=== PATIENT | female | born 1960 | race Caucasian/White ===

== ENCOUNTER 2022-07-12 12:32 | Outpatient (REF) | payer OTHER, SELFPAY ==
[2022-07-12 15:03] LABS: Influenza A PCR NEGATIVE (Negative); Influenza B PCR NEGATIVE (Negative); Resp Syncy Virus RNA Qual PCR NEGATIVE (Negative); SARS COV2 PCR INHOUSE NEGATIVE (Negative)
== END 2022-07-12 12:33 | disposition home or self-care (01) ==
LOC: HO.LNP 12:32
PROVIDERS: Visit Provider Internal Medicine
DX: Z20.822 Contact with and (suspected) exposure to COVID-19 (principal); R09.89 Other specified symptoms and signs involving the circulatory and respiratory systems; N30.00 Acute cystitis without hematuria
CPT/HCPCS: 0241U; 87086

== ENCOUNTER 2022-10-30 08:47 | Outpatient (AMB) | payer OTHER, SELFPAY ==
--- NOTE | 2022-10-30 08:55 | A.OFFPC_ITS ---
Vital Signs 10/30/22 08:56 Height 5 ft 3 in Weight 142 lb 6 oz BMI 25.2 BP 144/86 H Blood Pressure Location Lt brachial Position Sitting Pulse 60 Pulse Source Pulse Oximeter Pulse Oximetry (%) 95 Oxygen Delivery Method Room Air Intake Visit Reasons: Annual PE Allergies penicillins Adverse Reaction (Mild, Uncoded 07/12/22 09:49) Rash Medication List - Last Reconciled 10/30/22 by Дмитрий Hong MD No Known Home Meds Tobacco use date assessed: 10/30/22 Fall risk assessment: No Falls in past year Last assessed Fall Risk: 10/30/22 Dental Screening Dental Screen Date: 10/30/22 Did you have a dental visit in the last 12 months?: Yes Did you have a dental problem in the last 6 months where you did not have access to dental care?: No Was dental information given to patient?: No HPI Annual PE HPI Details Patient is 62-year-old female came in today for initial establish care visit on physical examination Patient is due for mammogram last mammogram was in 2019 at [place] Due for colonoscopy last colonoscopy was in 2011 that showed hemorrhoid and diverticulosis Due for Pap smear Due for labs as well to be done fasting Pressure is 144/86 I see that it was high last time as well in June when she was seen in walk-in clinic at 140/90 Patient will buy a blood pressure monitor and start monitoring it at home and keep a log She will be seen again in 12 weeks patient will bring her blood pressure log as well as monitor along. On examination she has developed tenia corporis rash under the breast I have sent Lotrisone cream that she can use once at night Also instructed patient to wear cotton proper without wires. [facility] Social History Housing: House Patient Tobacco Use Status: Never used Tobacco e-Cigarette/Vaping Use: Never Used service: No Current occupational status: employed Cognitive needs: No Hearing needs: No Vision needs: No Questionnaire PHQ-9 Over the last 2 weeks, how often have you been bothered by any of the following problems? 1. Little interest or pleasure in doing things: several days 2. Feeling down, depressed, or hopeless: not at all 3. Trouble falling or staying asleep, or sleeping too much: not at all 4. Feeling tired or having little energy: several days 5. Poor appetite or overeating: several days 6. Feeling bad about yourself - or that you are a failure or have let yourself or your family down: not at all 7. Trouble concentrating on things, such as reading the newspaper or watching television: several days 8. Moving or speaking so slowly that other people could have noticed. Or the opposite - being so fidgety or restless that you have been moving around a lot more than usual: not at all 9. Thoughts that you would be better off or of hurting yourself in some way: not at all Total score: 4 Depression Screening Interpretation: Negative 14291 - PHQ-9 Billing: Yes Source: Developed by Drs. Tristen Bates, Niama Castillo, Jose Guadalupe Law and colleagues, with an educational fide from [employer]. Thrive Questionnaire Date Thrive assessed: 10/30/22 I am a: Patient What is your living situation today?: I have a steady place to live Within the past 12 months, did the food you bought not last and you didn't have the money to get more?: Never true Within the past 12 months, did you worry whether your food would run out before you got money to buy more?: Never true Do you have trouble paying for medicines?: No Do you have trouble getting transportation to medical appointments?: No Do you have trouble paying your heating and electricity bill?: No Do you have trouble taking care of your child, family member or friend?: No Do you have trouble with day-to-day activities such as bathing, preparing meals, shopping, managing finances, etc.?: No Are you currently unemployed and looking for a job?: No Are you interested in more education?: Yes AUDIT C Alcohol Use Questionnaire (AUDIT-C) 1. How often do you have a drink containing alcohol?: Never 3. How often do you have six or more drinks on one occasion?: Never Total Score: 0 Score Reviewed/Action Taken: Yes BLAIR-7 AMB Questionnaire BLAIR-7 Date BLAIR - 7 assessed: 10/30/22 Feeling nervous, anxious, or on edge: 1 = Several days Not being able to stop or control worryin = Several days Worrying too much about different things: 1 = Several days Trouble relaxin = Several days Being so restless that it is hard to sit still: 1 = Several days Becoming easily annoyed or irritable: 1 = Several days Feeling afraid as if something awful might happen: 1 = Several days Total BLAIR-7 score (0-4 normal; 5-9 mild; 10-14 moderate; 15-21 severe): 7 Source: Developed by Drs. Tristen Bates, Naima Castillo, Jose Guadalupe Law and colleagues, with an educational fide from [employer]. BLAIR-7 Assessment Billing BLAIR-7 Assessment Tool: BLAIR-7 Assessment 85609 Review of Systems Const Denies chills, Denies fever(s) and Denies headache(s) Eyes Denies blurry vision ENT Denies headache(s), Denies nasal discharge, Denies nasal obstruction, Denies odynophagia and Denies sinus pain Card Denies chest pain at rest and Denies chest pain with activity Resp Denies cough and Denies hemoptysis GI Denies diarrhea, Denies odynophagia, Denies vomiting and Denies hematemesis Reports as per HPI Musc Denies abnormal gait Skin/Breast Reports as per HPI Neuro Denies Neuro-related abnormal movements, Denies Abnormal speech present, Denies abnormal gait, Denies headache(s) and Denies Sensory deficit (Neuro) Psych Denies mood swings and Denies paranoia Endo Reports as per HPI Zachery/Lymph Reports as per HPI Aller/Immun Reports as per HPI Physical exam (Primary Care) Vital Signs: Last Vital Signs Pulse 60 10/30/22 08:56 BP 144/86 H 10/30/22 08:56 Pulse Ox 95 10/30/22 08:56 Oxygen Delivery Method Room Air 10/30/22 08:56 BMI result Body Mass Index 25.2 Tobacco/Smoking Status: Tobacco use Status Tobacco use date assessed 10/30/22 10/30/22 08:58 Patient Tobacco Use Status Never used Tobacco 10/30/22 08:58 e-Cigarette/Vaping Use Never Used 10/30/22 08:58 PHQ-9: PHQ-9 Score PHQ-9: Total score 4 10/30/22 09:38 Depression Screening Interpretation: Negative Thrive Assessment: Date of Thrive Assessment Date Thrive assessed 10/30/22 10/30/22 09:38 Const General: cooperative, comfortable and no acute distress Orientation/consciousness: patient oriented x3 HENMT Head: Yes normocephalic and Yes atraumatic Eyes General: appearance normal, both eyes and all related structures Pupils: Equal, round and reactive pupils present EOM: EOMs intact bilaterally Neck Neck: Yes supple and No lymphadenopathy Thyroid: Thyroid normal Lymphatic: no lymphadenopathy noted Chest Other: Rash under both breast Breast/axilla palpation: normal palpation of the breasts Resp Effort & Inspection: normal respiratory effort and able to speak in complete sentences Auscultation: clear to auscultation bilaterally Cardio Heart sounds: S1 normal heart sound present and S2 normal heart sound present GI Palpation (GI): Soft to palpation and nontender Auscultation: normal bowel sounds General: Yes no CVA tenderness Back/Spine/Pelvis Back: no CVA tenderness Skin General skin exam: elasticity normal and turgor normal Neuro General: patient oriented x3 and gait normal Cranial nerves: Yes Equal, round and reactive pupils present Speech: No Abnormal speech present Sensory Exam: No Sensory deficit (Neuro) Coordination: tandem gait normal and Romberg test negative Extrem General: Yes normal exam except as noted and No edema Assessment and Plan Assessment & Plan (1) Encounter for general adult medical examination with abnormal findings: Code(s): Z00.01 - Encounter for general adult medical examination with abnormal findings (2) Elevated blood pressure reading: Code(s): R03.0 - Elevated blood-pressure reading, without diagnosis of hypertension (3) Tinea corporis: Code(s): B35.4 - Tinea corporis (4) Colon cancer screening: Code(s): Z12.11 - Encounter for screening for malignant neoplasm of colon Plan Patient is 62-year-old female came in today for initial establish care visit on physical examination Patient is due for mammogram last mammogram was in 2019 at [facility] Due for colonoscopy last colonoscopy was in 2011 that showed hemorrhoid and diverticulosis Due for Pap smear Due for labs as well to be done fasting Pressure is 144/86 I see that it was high last time as well in June when she was seen in walk-in clinic at 140/90 Patient will buy a blood pressure monitor and start monitoring it at home and keep a log She will be seen again in 12 weeks patient will bring her blood pressure log as well as monitor along. On examination she has developed tenia corporis rash under the breast I have sent Lotrisone cream that she can use once at night Also instructed patient to wear cotton proper without wires. Orders: Orders Comprehensive [place]. Panel Fast Today B35.4 - Tinea corporis, R03.0 - Elevated blood-pressure reading, without diagnosis of hypertension, Z00.01 - Encounter for general adult medical examination with abnormal findings Lipid Panel Today B35.4 - Tinea corporis, R03.0 - Elevated blood-pressure reading, without diagnosis of hypertension, Z00.01 - Encounter for general adult medical examination with abnormal findings Complete Blood Count Auto Diff Today B35.4 - Tinea corporis, R03.0 - Elevated blood-pressure reading, without diagnosis of hypertension, Z00.01 - Encounter for general adult medical examination with abnormal findings TSH reflex Free T4 Today R03.0 - Elevated blood-pressure reading, without diagnosis of hypertension MM tomosynthesis screening BI Today Z12.31 - Encounter for screening mammogram for malignant neoplasm of breast Referrals Gastroenterology Referral Z12.11 - Encounter for screening for malignant neoplasm of colon [facility] Referral Z01.419 - Encounter for gynecological examination (general) (routine) without abnormal findings Medications: New clotrimazole-betamethasone 1-0.05 % 1 appl topical ONCE 45 grams 0RF 30 days clotrimazole-betamethasone 1-0.05 % 1 appl topical ONCE 45 grams 0RF 30 days Coding Level of Care Code New Pt Prev Care 40-64y(54443) Diagnoses Encounter for general adult medical examination with abnormal findings Z00.01 Elevated blood pressure reading R03.0 Tinea corporis B35.4 Colon cancer screening Z12.11 Additional Codes BLAIR-7 Assessment Billing - BLAIR-7 Assessment Tool: BLAIR-7 Assessment 04522 ([id number])
[2022-10-30 08:56] VITALS: BP 144/86; PULSE 60; O2SAT 95; BMI 25.2
== END 2022-10-30 09:25 | disposition home or self-care (01) ==
PROVIDERS: Visit Provider Internal Medicine
DX: Z00.01 Encounter for general adult medical examination with abnormal findings (principal); R03.0 Elevated blood-pressure reading, without diagnosis of hypertension; B35.4 Tinea corporis; Z12.11 Encounter for screening for malignant neoplasm of colon
CPT/HCPCS: 99386; 99396

== ENCOUNTER 2022-11-24 08:21 | Outpatient (REF) | payer OTHER, SELFPAY | END 2022-11-24 08:22 | disposition home or self-care (01) | LOC: HO.MAMMO 08:21 | PROVIDERS: PCP Internal Medicine; Visit Provider Internal Medicine | DX: Z12.31 Encounter for screening mammogram for malignant neoplasm of breast (principal) | CPT/HCPCS: 77063; 77067 ==

== ENCOUNTER → 2022-11-24 08:45 | Outpatient (BNV) | payer OTHER, SELFPAY | PROVIDERS: PCP Internal Medicine; Visit Provider Radiology Diagnostic Radiology | DX: Z12.31 Encounter for screening mammogram for malignant neoplasm of breast (principal) | CPT/HCPCS: 77063; 77067 ==

== ENCOUNTER 2022-12-07 09:15 | Outpatient (AMB) | payer OTHER, SELFPAY ==
--- NOTE | 2022-12-07 09:24 | MHC.OFFVIS ---
Intake Vital Signs 12/07/22 09:26 Height 5 ft 3 in Weight 138 lb 14.259 oz BMI 24.6 BP 194/94 H Blood Pressure Location Lt brachial Position Sitting Pulse 54 Intake Visit Reasons: Colonoscopy Screening Intake Note: Erika presents in the office as a new patient colonoscopy screening. CC: She states that she does suffer from constipation. She gets constipated quite a bit. Sociology Instructor Required: No Allergies penicillins Adverse Reaction (Mild, Uncoded 12/07/22 09:28) Rash HPI Colonoscopy Screening HPI Details 62 year old? female here today for pre colonoscopy screening.? Patient was sent to us by her PCP.? Last colonoscopy over 10 years ago at [place]. Patient was found to have diverticulosis no polyps found.? Patient denies any gastrointestinal symptoms in the past or at present.? However patient does report constipation. Denies any personal or family history of gastrointestinal disease, colon polyps, or cancer.? Denies history of difficulty with sedation or anesthesia in the past.? Negative for history of sleep apnea.? Denies any history of cardiac, renal, pulmonary, or hepatic disease.?? No history of infectious? diseases like hepatitis A, B, C, HIV or tuberculosis.? Patient is not on any anticoagulation therapy. PFSH Surgical History H/O section Hx of colonoscopy Social History Housing: House Patient Tobacco Use Status: Never used Tobacco e-Cigarette/Vaping Use: Never Used service: No Current occupational status: employed Cognitive needs: No Hearing needs: No Vision needs: No Review of Systems Const Denies weight gain and Denies weight loss ENT Reports no additional complaints, Denies dysphagia and Denies odynophagia Card Reports no additional complaints Resp Reports no additional complaints GI Denies abdominal pain, Denies belching, Denies melena, Denies bloating, Reports constipation, Denies dysphagia, Denies excessive flatus, Denies dyspepsia, Denies heartburn, Denies diarrhea, Denies loose stools, Denies nausea, Denies odynophagia and Denies vomiting Reports no additional complaints Musc Reports no additional complaints Neuro Reports no additional complaints Psych Reports no additional complaints Endo Reports no additional complaints Physical Exam Vital Signs: Last Vital Signs Pulse 54 12/07/22 09:26 BP 194/94 H 12/07/22 09:26 BMI result Body Mass Index 24.6 Const General: healthy appearing, no acute distress and well developed Nutritional Appearance: well nourished Orientation/consciousness: patient oriented x3 HEENT Head: Yes normal to inspection, Yes normocephalic and Yes atraumatic Face and sinus: Yes normal facial exam Mouth: Normal oral and palatal mucosa present Throat: Yes posterior oropharynx normal, Yes tonsils normal and Yes uvula midline Eyes General: appearance normal, both eyes and all related structures Neck Neck: Yes normal visual inspection, Yes full ROM and Yes trachea midline Thyroid: Thyroid normal Resp Effort & Inspection: normal respiratory effort, able to speak in complete sentences, no tracheal deviation and symmetric chest movement Auscultation: clear to auscultation bilaterally Cardio Rate: regular rate Heart sounds: S1 normal heart sound present and S2 normal heart sound present GI Inspection: Yes normal to inspection and No distended Palpation (GI): Soft to palpation, not firm, nontender and No hepatosplenomegaly present Auscultation: normal bowel sounds General: Yes no CVA tenderness Back/Spine/Pelvis Back: no CVA tenderness Skin General skin exam: elasticity normal, turgor normal and dry skin Neuro General: patient oriented x3 Psych Appearance: grossly normal Mental Status: mental status grossly normal Speech and movement: Normal speech and movement present Assessment & Plan Assessment & Plan (1) Colon cancer screening: Code(s): Z12.11 - Encounter for screening for malignant neoplasm of colon Plan: Patient denies any GI, cardiac or respiratory symptoms.? However patient does reports to be constipated will send her script for MiraLax in the morning and docusate sodium at bedtime. Denies any issues with anesthesia in the past.? Denies any history of sleep apnea.? No history infectious diseases in the past or present.? Not on any anticoagulation therapy.? No family or personal history of colon cancer or polyps.? Patient denies melena, hematochezia, unintentional weight loss or ribbon like stools.? Discussed at length the pre-procedure,? prep, diet & medications as well as what to expect prior, during and after the procedure.?? Stressed the importance of good bowel prep. ?Recommended the use of Vaseline or Calmoseptine OTC & baby wipes with bowel movements to promote comfort.? ?Patient verbalizes understanding and agrees to plan of care.? She was given the opportunity to ask questions and all questions answered.? We will see her after the procedure.? Medications: New bisacodyl (Dulcolax (bisacodyl)) take 2 tabs at noon the day before your colonoscopy 10 mg (2 x 5 mg) PO ONCE 1 day 2 tabs 0RF Z12.11 - Encounter for screening for malignant neoplasm of colon polyethylene glycol 3350 (Miralax) As directed by gastroenterology department at [facility] 238 grams PO ONCE 238 grams 0RF Z12.11 - Encounter for screening for malignant neoplasm of colon polyethylene glycol 3350 (Miralax) 17 grams PO DAILY 510 grams 2RF docusate sodium 100 mg PO BEDTIME 90 caps 3RF K59.00 - Constipation, unspecified Coding Level of Care Code New Pt Level 3 (91445) Diagnoses Colon cancer screening Z12.11 Time Spent (min) 40 Comment 30 minutes spent with patient and additional 10 minutes spent reviewing her records
[2022-12-07 09:26] VITALS: BP 194/94; PULSE 54; BMI 24.6
== END 2022-12-07 10:07 | disposition home or self-care (01) ==
PROVIDERS: PCP Internal Medicine; Visit Provider Nurse Practitioner Family
DX: Z12.11 Encounter for screening for malignant neoplasm of colon (principal); Z01.818 Encounter for other preprocedural examination
CPT/HCPCS: S0285

== ENCOUNTER → 2022-12-07 09:15 | Outpatient (BNVA) | payer OTHER, SELFPAY | PROVIDERS: PCP Internal Medicine; Visit Provider Nurse Practitioner Family ==

== ENCOUNTER 2023-02-12 08:07 | Outpatient (REF) | payer OTHER, SELFPAY ==
[2023-02-12 11:17] LABS: MANUAL DIFF FLAG NO
[2023-02-12 11:25] LABS: Basophils Percent Auto 0.6 % (0-2); Eosinophils Absolute Auto 0.3 X10*3/uL (0.0-0.4); Eosinophils Percent Auto 3.7 % (0-4); Hematocrit 47.6 % (37.0-47.0); Hemoglobin 14.9 g/dl (12.0-16.0); Imm Gran Abs Auto 0.02 X10*3/uL (0.00-0.03); Imm Gran Pct Auto 0.3 % (0.0-0.4); Lymphocytes Absolute Auto 2.1 X10*3/uL (1.2-4.9); Lymphocytes Percent Auto 30.7 % (20-40); Mean Corpuscular HGB Conc 31.3 g/dl (31.0-35.0); Mean Corpuscular Hemoglobin 27.6 pg (27.0-33.0); Mean Corpuscular Volume 88.3 fL (80.0-98.0); Mean Platelet Volume 10.4 fL (9.4-12.3); Monocytes Absolute Auto 0.6 X10*3/uL (0.1-1.2); Monocytes Percent Auto 9.1 % (2-11); Neutrophils Absolute Auto 3.7 x10*3/uL (2.0-8.3); Neutrophils Percent Auto 55.6 % (45-73); Platelet Count 305 X10*3/uL (160-400); Red Blood Count 5.39 X10*6/uL (4.20-5.50); White Blood Count 6.7 X10*3/uL (4.8-10.8)
[2023-02-12 12:07] LABS: Alanine Aminotransferase 19 U/L (0-31); Albumin Level 4.2 g/dL (3.5-5.0); Alkaline Phosphatase 87 U/L (39-117); Anion Gap 11 (12-20); Aspartate Amino Transferase 20 U/L (5-31); Bilirubin Total 0.5 mg/dL (0.0-1.0); Blood Urea Nitrogen 12 mg/dL (9-16); Carbon Dioxide 27 mmol/L (22-29); Chloride 101 mmol/L (96-108); Cholesterol 205 mg/dL (<200); Estimated Glomerular Filt Rate > 60; Glucose Fasting 107 mg/dL (60-99); HDL Cholesterol 37 mg/dL (>40); LDL Cholesterol Calculated 144 mg/dL (<100); Potassium 4.3 mmol/L (3.3-5.1); Sodium 135 mmol/L (135-145); TSH reflex Free T4 2.48 uIU/mL (0.32-4.0); Total Protein 7.8 g/dL (6.5-8.0); Triglycerides 121 mg/dL (<150)
== END 2023-02-12 08:08 | disposition home or self-care (01) ==
LOC: HO.HMGCLDS 08:07
PROVIDERS: PCP Internal Medicine; Visit Provider Internal Medicine
DX: Z00.01 Encounter for general adult medical examination with abnormal findings (principal); R03.0 Elevated blood-pressure reading, without diagnosis of hypertension; B35.4 Tinea corporis
CPT/HCPCS: 36415; 80053; 80061; 84443; 85025

== ENCOUNTER 2023-02-15 08:51 | Outpatient (AMB) | payer OTHER, SELFPAY ==
[2023-02-15 08:56] VITALS: BP 134/80; PULSE 61; O2SAT 98; BMI 24.4
--- NOTE | 2023-02-15 08:56 | A.OFFPC_ITS ---
Vital Signs 02/15/23 08:56 Height 5 ft 3 in Weight 138 lb BMI 24.4 BP 134/80 Blood Pressure Location Rt brachial Position Sitting Pulse 61 Pulse Source Pulse Oximeter Pulse Oximetry (%) 98 Oxygen Delivery Method Room Air Intake Visit Reasons: 4 month f/u Allergies penicillins Adverse Reaction (Mild, Uncoded 12/07/22 09:28) Rash Tobacco use date assessed: 02/15/23 Fall risk assessment: No Falls in past year Last assessed Fall Risk: 02/15/23 Dental Screening Dental Screen Date: 02/15/23 Did you have a dental visit in the last 12 months?: Yes Did you have a dental problem in the last 6 months where you did not have access to dental care?: No Was dental information given to patient?: Patient has dentist HPI 4 month f/u HPI Details Patient is 62-year-old female came in today to have a follow-up appointment and to have her blood pressure checked Patient is checking her blood pressure at home and it is running above 150 Today I checked the blood pressure and it is 175/100. I am starting her on atenolol 25 mg Patient also have impaired fasting sugar of 107 and LDL of 144 For that she will modify her diet PFSH Surgical History H/O section Hx of colonoscopy Social History Housing: House Patient Tobacco Use Status: Never used Tobacco e-Cigarette/Vaping Use: Never Used service: No Current occupational status: employed Cognitive needs: No Hearing needs: No Vision needs: No Questionnaire PHQ-9 Over the last 2 weeks, how often have you been bothered by any of the following problems? 1. Little interest or pleasure in doing things: several days 2. Feeling down, depressed, or hopeless: several days 3. Trouble falling or staying asleep, or sleeping too much: several days 4. Feeling tired or having little energy: several days 5. Poor appetite or overeating: several days 6. Feeling bad about yourself - or that you are a failure or have let yourself or your family down: several days 7. Trouble concentrating on things, such as reading the newspaper or watching television: several days 8. Moving or speaking so slowly that other people could have noticed. Or the o pposite - being so fidgety or restless that you have been moving around a lot more than usual: several days 9. Thoughts that you would be better off or of hurting yourself in some way: not at all Total score: 8 Depression Screening Interpretation: Negative Depression Screening Done: Yes 92590 - PHQ-9 Billing: Yes Source: Developed by Drs. Tristen Bates, Naima Castillo, Jose Guadalupe Law and colleagues, with an educational fide from [employer]. Thrive Questionnaire Date Thrive assessed: 10/30/22 AUDIT C Alcohol Use Questionnaire (AUDIT-C) 1. How often do you have a drink containing alcohol?: Never 3. How often do you have six or more drinks on one occasion?: Never Total Score: 0 Score Reviewed/Action Taken: Yes BLAIR-7 AMB Questionnaire BLAIR-7 Date BLAIR - 7 assessed: 10/30/22 Source: Developed by Drs. Tristen Bates, Naima Castillo, Jose Guadalupe Law and colleagues, with an educational fide from [employer]. Review of Systems Const Denies chills and Denies fever(s) ENT Denies epistaxis and Denies nasal discharge Card Denies chest pain Resp Denies chest congestion, Denies cough and Denies hemoptysis GI Denies diarrhea and Denies nausea Skin/Breast Denies rash Neuro Reports no additional complaints Psych Reports no additional complaints Endo Reports no additional complaints Physical exam (Primary Care) Vital Signs: Last Vital Signs Pulse 61 02/15/23 08:56 BP 134/80 02/15/23 08:56 Pulse Ox 98 02/15/23 08:56 Oxygen Delivery Method Room Air 02/15/23 08:56 BMI result Body Mass Index 24.4 Tobacco/Smoking Status: Tobacco use Status Tobacco use date assessed 02/15/23 02/15/23 09:05 Patient Tobacco Use Status Never used Tobacco 02/15/23 08:57 e-Cigarette/Vaping Use Never Used 02/15/23 08:57 PHQ-9: PHQ-9 Score PHQ-9: Total score 8 02/15/23 09:23 Depression Screening Interpretation: Negative Thrive Assessment: Date of Thrive Assessment Date Thrive assessed 10/30/22 02/15/23 08:57 Const General: cooperative, comfortable and no acute distress Orientation/consciousness: patient oriented x3 HENMT Head: Yes normocephalic Eyes General: appearance normal, both eyes and all related structures Neck Neck: Yes supple Resp Effort & Inspection: normal respiratory effort, no cough and no stridor Cardio Rhythm: regular rhythm Heart sounds: S1 normal heart sound present and S2 normal heart sound present Skin General skin exam: turgor normal Neuro General: patient oriented x3, tone normal and moves all extremities Extrem Right lower extremity: no edema Left lower extremity: no edema Assessment and Plan Assessment & Plan (1) Hypertension, essential: Code(s): I10 - Essential (primary) hypertension (2) Prediabetes: Code(s): R73.03 - Prediabetes (3) Lipid disorder: Code(s): E78.9 - Disorder of lipoprotein metabolism, unspecified Plan Patient is 62-year-old female came in today to have a follow-up appointment and to have her blood pressure checked Patient is checking her blood pressure at home and it is running above 150 Today I checked the blood pressure and it is 175/100. I am starting her on atenolol 25 mg Patient also have impaired fasting sugar of 107 and LDL of 144 For that she will modify her diet Coding Level of Care Code Est Pt Level 3 (82611) Diagnoses Hypertension, essential I10 Prediabetes R73.03 Lipid disorder E78.9
== END 2023-02-15 09:25 | disposition home or self-care (01) ==
PROVIDERS: Visit Provider Internal Medicine
DX: I10 Essential (primary) hypertension (principal); R73.03 Prediabetes; E78.9 Disorder of lipoprotein metabolism, unspecified
CPT/HCPCS: 99213

== ENCOUNTER 2023-03-21 10:24 | Day surgery (SDC) | payer OTHER, SELFPAY ==
[2023-03-21 10:27] VITALS: BMI 23.8
[2023-03-21 10:35] VITALS: BP 164/88; PULSE 42; RESP 20; TEMP 36.3; O2SAT 98
--- NOTE | 2023-03-21 10:39 | HO.ANESPROP2 ---
[facility] Active Problems Active Problems: All Active Problems (Updated 03/21/23 @ 10:40 by Paulette Begum MD) Lipid disorder (Acute) Prediabetes (Acute) Hypertension, essential (Acute) Encounter for routine gynecological examination (Acute) Colon cancer screening (Acute) Tinea corporis (Acute) Elevated blood pressure reading (Acute) Encounter for general adult medical examination with abnormal findings (Acute) Acute cystitis (Acute) Past Medical History Medical History HTN (hypertension) Family History Family history of problems with anesthesia: No Surgical History Surgical History H/O section Hx of colonoscopy History of Problems with Anesthesia: No Social History Social History Housing: House Patient Tobacco Use Status: Never used Tobacco e-Cigarette/Vaping Use: Never Used Are you DNR?: No Advance Directives: No Advance Directives Information Provided: Yes service: No Current occupational status: employed Cognitive needs: No Hearing needs: No Vision needs: No Meds Allergies Allergy/AdvReac Type Severity Reaction Status Date / Time penicillins AdvReac Mild Rash Uncoded 12/07/22 09:28 Exam Height,Weight and Vital Signs: Height 5 ft 3 in Weight 60.895 kg Last Vital Signs Temp 97.3 F 03/21/23 10:35 Pulse 82 03/21/23 10:35 Resp 20 03/21/23 10:35 BP 164/88 H 03/21/23 10:35 Pulse Ox 98 03/21/23 10:35 O2 Del Method Room Air 03/21/23 10:35 Airway Mallampati Class: II TM Dist: >3cm Neck ROM: Full Loose/Missing/Broken Teeth: Yes (Missing top left back. Caps back-intact. Denies broken or loose teeth) Heart: RRR Lungs: CTAB Assessment and Plan Assessment Anesthesia Assessment: Anesthesia Plan Discussed and Chart Reviewed Final Anesthetic Review Family History of Problems with Anesthesia: No History of Problems with Anesthesia: No NPO: Yes ASA Class: II Final Preanesthetic Review: No Changes in Pt Med Stat, Meds/Allgs Chart Reviewed, Consent Obtained/Reviewed and Anes Risks/Benef Reviewed Patient Risk: Low Procedure Risk: Low Assessment/Block/Sedation in SS: Assess/Block/Sedation-SS Anesthetic Plan Anesthetic Plan: TIVA Disposition: Standard PACU
--- NOTE | 2023-03-21 10:56 | MHC.SHP ---
Pre-Procedural Eval Section A Date of Service: 03/21/23 Section B Chief Complaint: Encounter for screening for malignant neoplasm of Relevant Family History (Specify if Yes): No Relevant Social History: None Present Medications: see Short Stay Collaborative assessment Medical History: Significant History (htn) History of Previous Operations: Relevant previous surgery/procedure and date(s) (H/O section Hx of colonoscopy) Allergies: Allergies Allergy/AdvReac Type Severity Reaction Status Date / Time penicillins AdvReac Mild Rash Uncoded 12/07/22 09:28 Review of Systems Sugical H&P ROS: Negative: Constitution, Cardiovascular, Respiratory, Neurological, Psychiatric, Hem-Onc, Allergic/Immunologic, Gastrointestinal, Genitourinary, Musculoskeletal, Integumentary, Endocrine and Eyes/Ears/Nose/Throat Exam Surgical H&P Exam: Normal: HEENT, Normal: Heart, Normal: Lungs, Normal: Extremities, Normal: Abdomen, Normal: Skin and Normal: Neurological Plan Diagnosis/Plan: Unchanged I have reviewed the history and physical and performed a pertinent physical examination on my patient. No changes have occurred unless specified. Time Spent With Patient Time: Total time managing care of this patient today ____ minutes.
--- NOTE | 2023-03-21 11:46 | W.PM.OPN ---
Operative Note Operative Note Date of Service: 03/21/23 Narrative: Operative Information Procedure Description: Colonoscopy Indication: Screening Anesthesia: MAC COLONOSCOPY Instrument: Olympus variable stiffness pediatric scope 190L Colonoscopy Monitoring: Vital signs and clinical assessment, continuous EKG monitoring, Pulse oximetry, Carbon Dioxide monitoring and blood pressure monitoring were done throughout the procedure. Colon withdrawal time was 12 minutes. Procedure: The patient was placed in the left lateral decubitis position and pre-procedure medications were administered. After a digital rectal examination of the ano-rectum, the video colonoscope was inserted into the rectum and advanced through the colon to the cecum/TI. The colonoscope was slowly withdrawn in a retrograde panoramic fashion and the colon mucosa was carefully examined including a retroflexed view of the rectum. Findings and interventions are described below. Procedure Difficulty: moderate Findings: Terminal Ileum-normal Cecum: x1 flat polyp 4-5 mm removed with cold forceps Ascending Colon: 10 mm sessile polyp removed with cold snare Transverse Colon -normal Descending Colon:normal Sigmoid Colon: x 4 sessile polyps 10-12 mm removed with cold snare, severe diverticulosis in distal sigmoid with luminal narrowing and hypertrophy, bx taken from rectosigmoid area Rectum: Retroflexion with small internal hemorrhoids, grade I Anorectum - normal Colon preparation: [place] Bowel Preparation Scale Right colon; 2 Transverse colon: 2 Left colon; 3 (0 = Unprepared colon segment with mucosa not seen due to solid stool that cannot be cleared. 1 = Portion of mucosa of the colon segment seen, but other areas of the colon segment not well seen due to staining, residual stool and/or opaque liquid. 2 = Minor amount of residual staining, small fragments of stool and/or opaque liquid, but mucosa of colon segment seen well. 3 = Entire mucosa of colon segment seen well with no residual staining, small fragments of stool or opaque liquid) Impression and Post Procedure Diagnosis: polyps internal hemorrhoids diverticular disease Plan: High fiber diet leaflet Avoid straining at stool, epsom salts and sitz bath, anusol supps or cream Repeat Colonoscopy in 3-4 years due to polyps or earlier if clinically indicated can use bentyl or levsin prn for cramping Above findings were reviewed with the patient and relevant handouts were provided if indicated.
[2023-03-21 11:55] VITALS: BP 156/80; PULSE 70; RESP 18; TEMP 36.3; O2SAT 99
[2023-03-21 12:10] VITALS: BP 156/74; PULSE 44; RESP 16; TEMP 36.2; O2SAT 100
== END 2023-03-21 13:05 | disposition home or self-care (01) ==
PROVIDERS: PCP Internal Medicine; Visit Provider Internal Medicine Gastroenterology
PROC: 0DJD8ZZ Inspection of Lower Intestinal Tract, Via Natural or Artificial Opening Endoscopic (ICD-10-PCS; CPT 45378; principal; 2023-03-21 13:10)
DX: Z12.11 Encounter for screening for malignant neoplasm of colon (principal); D12.2 Benign neoplasm of ascending colon; D12.4 Benign neoplasm of descending colon; D12.5 Benign neoplasm of sigmoid colon; K63.5 Polyp of colon; K57.30 Diverticulosis of large intestine without perforation or abscess without bleeding; K64.0 First degree hemorrhoids; K59.00 Constipation, unspecified; I10 Essential (primary) hypertension; E75.6 Lipid storage disorder, unspecified; R73.03 Prediabetes; Z88.0 Allergy status to penicillin
CPT/HCPCS: 45385; 45380; 88305; J2704

== ENCOUNTER → 2023-03-21 10:24 | Outpatient (BNV) | payer OTHER, SELFPAY | PROVIDERS: PCP Internal Medicine; Visit Provider Internal Medicine Gastroenterology | DX: Z12.11 Encounter for screening for malignant neoplasm of colon (principal); D12.0 Benign neoplasm of cecum; D12.2 Benign neoplasm of ascending colon; D12.5 Benign neoplasm of sigmoid colon; K57.30 Diverticulosis of large intestine without perforation or abscess without bleeding; K64.0 First degree hemorrhoids | CPT/HCPCS: 45380; 45385 ==

== ENCOUNTER 2023-04-23 11:37 | Outpatient (AMB) | payer OTHER, SELFPAY ==
--- NOTE | 2023-04-23 11:42 | MHC.OFFVIS ---
Intake Vital Signs 04/23/23 11:43 Height 5 ft 3 in Weight 134 lb BMI 23.7 BP 156/75 H Blood Pressure Location Lt brachial Position Sitting Pulse 46 L Intake Visit Reasons: s/p colon Intake Note: Patient follow up for Colonoscopy results. Patient denies any GI issues. Head Librarian Required: No Accompanied by: Self / Same As Patient Allergies penicillins Adverse Reaction (Mild, Uncoded 12/07/22 09:28) Rash HPI s/p colon HPI Details LAST VISIT Colon cancer screening Patient denies any GI, cardiac or respiratory symptoms.? However patient does reports to be constipated will send her script for MiraLax in the morning and docusate sodium at bedtime. Denies any issues with anesthesia in the past.? Denies any history of sleep apnea.? No history infectious diseases in the past or present.? Not on any anticoagulation therapy.? No family or personal history of colon cancer or polyps.? Patient denies melena, hematochezia, unintentional weight loss or ribbon like stools.? Discussed at length the pre-procedure,? prep, diet & medications as well as what to expect prior, during and after the procedure.?? Stressed the importance of good bowel prep. ?Recommended the use of Vaseline or Calmoseptine OTC & baby wipes with bowel movements to promote comfort.? ?Patient verbalizes understanding and agrees to plan of care.? She was given the opportunity to ask questions and all questions answered.? We will see her after the procedure.? Plan Medications New bisacodyl (Dulcolax (bisacodyl)) take 2 tabs at noon the day before your colonoscopy 10 mg (2 x 5 mg) PO ONCE 1 day 2 tabs 0RF Z12.11 polyethylene glycol 3350 (Miralax) As directed by gastroenterology department at [facility] 238 grams PO ONCE 238 grams 0RF Z12.11 polyethylene glycol 3350 (Miralax) 17 grams PO DAILY 510 grams 2RF docusate sodium 100 mg PO BEDTIME 90 caps 3RF K59.00 COLONOSCOPY Findings: Terminal Ileum-normal Cecum: x1 flat polyp 4-5 mm removed with cold forceps Ascending Colon: 10 mm sessile polyp removed with cold snare Transverse Colon -normal Descending Colon:normal Sigmoid Colon: x 4 sessile polyps 10-12 mm removed with cold snare, severe diverticulosis in distal sigmoid with luminal narrowing and hypertrophy, bx taken from rectosigmoid area Rectum: Retroflexion with small internal hemorrhoids, grade I Anorectum - normal Colon preparation: [place] Bowel Preparation Scale Right colon; 2 Transverse colon: 2 Left colon; 3 (0 = Unprepared colon segment with mucosa not seen due to solid stool that cannot be cleared. 1 = Portion of mucosa of the colon segment seen, but other areas of the colon segment not well seen due to staining, residual stool and/or opaque liquid. 2 = Minor amount of residual staining, small fragments of stool and/or opaque liquid, but mucosa of colon segment seen well. 3 = Entire mucosa of colon segment seen well with no residual staining, small fragments of stool or opaque liquid) Impression and Post Procedure Diagnosis: polyps internal hemorrhoids diverticular disease Plan: High fiber diet leaflet Avoid straining at stool, epsom salts and sitz bath, anusol supps or cream Repeat Colonoscopy in 3-4 years due to polyps or earlier if clinically indicated can use bentyl or levsin prn for cramping PATHOLOGY RESULTS Diagnosis A. Cecum, polypectomy: Colonic mucosa with prominent lymphoid aggregate and surface hyperplastic changes. B. Colon, ascending, polypectomy: Tubular adenoma; negative for high-grade dysplasia or carcinoma. C. Colon, descending, polypectomy: Tubular adenoma; negative for high-grade dysplasia or carcinoma. D. Colon, sigmoid, polypectomies: - Tubular adenoma; negative for high-grade dysplasia or carcinoma. - Hyperplastic mucosal polyp. E. Colon, rectosigmoid, biopsy: Colonic mucosa within normal limits.probiotic TODAY'S VISIT Patient is here today for follow-up and to discuss colonoscopy results. Patient denies any ill effects from the prep, anesthesia or procedure itself. Patient reports that she has been feeling well. Several tubular adenoma found without high-grade dysplasia or carcinoma. Colonoscopy will need to be repeated in 3 years per recommendations. Patient was also found to have the office in sigmoid colon. Patient reports that she is changing her diet, eating more fiber. Patient states that she drinks plenty fluids. Patient denies any GI concerning symptoms at this time. [facility] Medical History (Updated 04/23/23 @ 12:06 by Dena Patel [facility]) Diverticulosis Tubular adenoma HTN (hypertension) Surgical History H/O section Hx of colonoscopy Social History Housing: House Patient Tobacco Use Status: Never used Tobacco e-Cigarette/Vaping Use: Never Used service: No Current occupational status: employed Cognitive needs: No Hearing needs: No Vision needs: No Review of Systems Const Denies weight gain and Denies weight loss ENT Reports no additional complaints, Denies dysphagia and Denies odynophagia Card Reports no additional complaints Resp Reports no additional complaints GI Denies abdominal pain, Denies belching, Denies melena, Denies bloating, Denies change in bowel habits, Denies dysphagia, Denies excessive flatus, Denies dyspepsia, Denies heartburn, Denies diarrhea, Denies loose stools, Denies nausea, Denies odynophagia and Denies vomiting Musc Reports no additional complaints Neuro Reports no additional complaints Psych Reports no additional complaints Endo Reports no additional complaints Physical Exam Vital Signs: Last Vital Signs Pulse 46 L 04/23/23 11:43 BP 156/75 H 04/23/23 11:43 BMI result Body Mass Index 23.7 Const General: healthy appearing, no acute distress and well developed Nutritional Appearance: well nourished Orientation/consciousness: patient oriented x3 Resp Effort & Inspection: normal respiratory effort, able to speak in complete sentences, no tracheal deviation and symmetric chest movement Auscultation: clear to auscultation bilaterally Cardio Rate: regular rate GI Inspection: Yes normal to inspection and No distended Palpation (GI): Soft to palpation, not firm, nontender and No hepatosplenomegaly present Auscultation: normal bowel sounds General: Yes no CVA tenderness Back/Spine/Pelvis Back: no CVA tenderness Skin General skin exam: elasticity normal, turgor normal and dry skin Neuro General: patient oriented x3 Psych Appearance: grossly normal Mental Status: mental status grossly normal Assessment & Plan Assessment & Plan (1) Tubular adenoma: Code(s): D36.9 - Benign neoplasm, unspecified site (2) Diverticulosis: Code(s): K57.90 - Diverticulosis of intestine, part unspecified, without perforation or abscess without bleeding (3) Status post colonoscopy: Code(s): Z98.890 - Other specified postprocedural states Plan As mentioned above in HPI patient denies any GI concerning symptoms. Denies any issues with anesthesia, procedure or prep. Diverticulosis found. Discussed with patient high-fiber diet. List of food high in fiber given to patient. Colonoscopy will be repeated in 3 years as per recommendation. Multiple tubular adenoma found without high-grade dysplasia or carcinoma. Patient will follow-up in our office on as-needed basis. She is agreeable to this plan and verbalizes understanding of instructions. She was given the opportunity to ask questions and all questions answered. Thank you for allowing me to participate in her care Coding Level of Care Code Est Pt Level 3 (35644) Diagnoses Tubular adenoma D36.9 Diverticulosis K57.90 Status post colonoscopy Z98.890 Time Spent (min) 30 Comment 20 minutes spent with patient and additional 10 minutes spent reviewing her records
[2023-04-23 11:43] VITALS: BP 156/75; PULSE 46; BMI 23.7
== END 2023-04-23 12:09 | disposition home or self-care (01) ==
PROVIDERS: PCP Internal Medicine; Visit Provider Nurse Practitioner Family
DX: D36.9 Benign neoplasm, unspecified site (principal); K57.90 Diverticulosis of intestine, part unspecified, without perforation or abscess without bleeding; Z98.890 Other specified postprocedural states
CPT/HCPCS: 99213

== ENCOUNTER → 2023-04-23 11:37 | Outpatient (BNVA) | payer OTHER, SELFPAY | PROVIDERS: PCP Internal Medicine; Visit Provider Nurse Practitioner Family ==

== ENCOUNTER 2023-05-31 08:02 | Outpatient (AMB) | payer OTHER, SELFPAY ==
[2023-05-31 08:08] VITALS: BP 132/80; PULSE 48; O2SAT 98; BMI 24.9
--- NOTE | 2023-05-31 08:08 | A.OFFPC_ITS ---
Vital Signs 05/31/23 08:08 Height 5 ft 3 in Weight 140 lb 6 oz BMI 24.9 BP 132/80 Blood Pressure Location Lt brachial Position Sitting Pulse 48 L Pulse Source Pulse Oximeter Pulse Oximetry (%) 98 Oxygen Delivery Method Room Air Intake Visit Reasons: 3 month fu Allergies penicillins Adverse Reaction (Mild, Uncoded 05/31/23 08:08) Rash Medication List - Last Reconciled 05/31/23 by Дмитрий Hong MD atenolol 25 mg PO DAILY clotrimazole-betamethasone 1-0.05 % 1 appl topical ONCE 30 days docusate sodium 100 mg PO BEDTIME hyoscyamine sulfate 0.125 mg PO QID Tobacco use date assessed: 05/31/23 Fall risk assessment: No Falls in past year Last assessed Fall Risk: 05/31/23 Dental Screening Dental Screen Date: 05/31/23 Did you have a dental visit in the last 12 months?: Yes Did you have a dental problem in the last 6 months where you did not have access to dental care?: No Was dental information given to patient?: Patient has dentist HPI 3 month fu HPI Details Patient is 62-year-old female came in today for regular follow-up appointment Patient is prediabetic with slightly elevated lipids for that she is controlling diet Four hypertension patient is on atenolol 25 mg however I see her heart rate to be less than 50 We did the EKG which shows bradycardia with a heart rate of [address]-T findings Patient is physically active she has been dancing for the past 14 years She tells me that she feels good there is no chest pain, no shortness a breath, no swelling of ankles I am changing atenolol to losartan 25 mg patient will continue monitoring her blood pressure at home, if it remains above 140 Patient is to double the dose to 50 mg. Lab order placed to be done fasting Patient is to return in 3 weeks for blood pressure monitoring. [facility] Medical History Diverticulosis Tubular adenoma HTN (hypertension) Surgical History H/O section Hx of colonoscopy Social History Housing: House Patient Tobacco Use Status: Never used Tobacco e-Cigarette/Vaping Use: Never Used service: No Current occupational status: employed Cognitive needs: No Hearing needs: No Vision needs: No Questionnaire PHQ-9 Over the last 2 weeks, how often have you been bothered by any of the following problems? 1. Little interest or pleasure in doing things: several days 2. Feeling down, depressed, or hopeless: several days 3. Trouble falling or staying asleep, or sleeping too much: several days 4. Feeling tired or having little energy: several days 5. Poor appetite or overeating: several days 6. Feeling bad about yourself - or that you are a failure or have let yourself or your family down: several days 7. Trouble concentrating on things, such as reading the newspaper or watching television: several days 8. Moving or speaking so slowly that other people could have noticed. Or the opposite - being so fidgety or restless that you have been moving around a lot more than usual: several days 9. Thoughts that you would be better off or of hurting yourself in some way: not at all Total score: 8 Depression Screening Interpretation: Positive Depression Screening Follow-up: Community Mental Health Worker F/U Depression Screening Done: Yes 02885 - PHQ-9 Billing: Yes Source: Developed by Drs. Tristen Bates, Naima Castillo, Jose Guadalupe Law and colleagues, with an educational fide from [employer]. Thrive Questionnaire Date Thrive assessed: 05/31/23 I am a: Patient What is your living situation today?: I have a steady place to live Within the past 12 months, did the food you bought not last and you didn't have the money to get more?: Never true Within the past 12 months, did you worry whether your food would run out before you got money to buy more?: Never true Do you have trouble paying for medicines?: No Do you have trouble getting transportation to medical appointments?: No Do you have trouble paying your heating and electricity bill?: No Do you have trouble taking care of your child, family member or friend?: No Do you have trouble with day-to-day activities such as bathing, preparing meals, shopping, managing finances, etc.?: No Are you currently unemployed and looking for a job?: No Are you interested in more education?: Yes Please select the resources that you would like help with: None Currently or been in a relationship where the following occur: no concerns reported THRIVE Score: 0 AUDIT C Alcohol Use Questionnaire (AUDIT-C) 1. How often do you have a drink containing alcohol?: Never 3. How often do you have six or more drinks on one occasion?: Never Total Score: 0 Score Reviewed/Action Taken: Yes BLAIR-7 AMB Questionnaire BLAIR-7 Date BLAIR - 7 assessed: 05/31/23 Feeling nervous, anxious, or on edge: 1 = Several days Not being able to stop or control worryin = Several days Worrying too much about different things: 1 = Several days Trouble relaxin = Several days Being so restless that it is hard to sit still: 1 = Several days Becoming easily annoyed or irritable: 1 = Several days Feeling afraid as if something awful might happen: 1 = Several days Total BLAIR-7 score (0-4 normal; 5-9 mild; 10-14 moderate; 15-21 severe): 7 Source: Developed by Drs. Tristen Bates, Naima Castillo, Jose Guadalupe Law and colleagues, with an educational fide from [employer]. BLAIR-7 Assessment Billing BLAIR-7 Assessment Tool: BLAIR-7 Assessment 94692 Review of Systems Const Denies chills and Denies fever(s) ENT Denies epistaxis and Denies nasal discharge Card Denies chest pain Resp Denies chest congestion, Denies cough and Denies hemoptysis GI Denies diarrhea and Denies nausea Skin/Breast Denies rash Neuro Reports no additional complaints Psych Reports no additional complaints Endo Reports no additional complaints Physical exam (Primary Care) Vital Signs: Last Vital Signs Pulse 48 L 05/31/23 08:08 BP 132/80 05/31/23 08:08 Pulse Ox 98 05/31/23 08:08 Oxygen Delivery Method Room Air 05/31/23 08:08 BMI result Body Mass Index 24.9 Tobacco/Smoking Status: Tobacco use Status Tobacco use date assessed 05/31/23 05/31/23 08:11 Patient Tobacco Use Status Never used Tobacco 05/31/23 08:11 e-Cigarette/Vaping Use Never Used 05/31/23 08:11 PHQ-9: PHQ-9 Score PHQ-9: Total score 8 05/31/23 08:36 Depression Screening Interpretation: Positive Depression Screening Follow-up: Community Mental Health Worker F/U Thrive Assessment: Date of Thrive Assessment Date Thrive assessed 05/31/23 05/31/23 08:11 Currently or been in a relationship where the following occur: no concerns repor stefani Const General: cooperative, comfortable and no acute distress Orientation/consciousness: patient oriented x3 HENMT Head: Yes normocephalic Eyes General: appearance normal, both eyes and all related structures Neck Neck: Yes supple Resp Effort & Inspection: normal respiratory effort, no cough and no stridor Cardio Rhythm: regular rhythm Heart sounds: S1 normal heart sound present and S2 normal heart sound present Skin General skin exam: turgor normal Neuro General: patient oriented x3, tone normal and moves all extremities Extrem Right lower extremity: no edema Left lower extremity: no edema Assessment and Plan Assessment & Plan (1) Bradycardia: Code(s): R00.1 - Bradycardia, unspecified (2) Hypertension, essential: Code(s): I10 - Essential (primary) hypertension (3) Prediabetes: Code(s): R73.03 - Prediabetes (4) Lipid disorder: Code(s): E78.9 - Disorder of lipoprotein metabolism, unspecified Plan Patient is 62-year-old female came in today for regular follow-up appointment Patient is prediabetic with slightly elevated lipids for that she is controlling diet Four hypertension patient is on atenolol 25 mg however I see her heart rate to be less than 50 We did the EKG which shows bradycardia with a heart rate of 42 There are [address]-T findings Patient is physically active she has been dancing for the past 14 years She tells me that she feels good there is no chest pain, no shortness a breath, no swelling of ankles I am changing atenolol to losartan 25 mg patient will continue monitoring her blood pressure at home, if it remains above 140 Patient is to double the dose to 50 mg. Lab order placed to be done fasting Patient is to return in 3 weeks for blood pressure monitoring. Orders: Orders Comprehensive [place]. Panel Fast Today E78.9 - Disorder of lipoprotein metabolism, unspecified, I10 - Essential (primary) hypertension, R73.03 - Prediabetes AMB EKG-In Office Today R00.1 - Bradycardia, unspecified Complete Blood Count Auto Diff Today E78.9 - Disorder of lipoprotein metabolism, unspecified, I10 - Essential (primary) hypertension, R73.03 - Prediabetes Lipid Panel Today E78.9 - Disorder of lipoprotein metabolism, unspecified, I10 - Essential (primary) hypertension, R73.03 - Prediabetes Hemoglobin A1c Today E78.9 - Disorder of lipoprotein metabolism, unspecified, I10 - Essential (primary) hypertension, R73.03 - Prediabetes Medications: New losartan 25 mg PO DAILY 30 tabs 0RF Discontinued atenolol Discontinued Reason: Doctor's Order 25 mg PO DAILY 90 tabs 0RF Coding Level of Care Code Est Pt Level 4 (89094) Diagnoses Bradycardia R00.1 Hypertension, essential I10 Prediabetes R73.03 Lipid disorder E78.9 Additional Codes BLAIR-7 Assessment Billing - BLAIR-7 Assessment Tool: BLAIR-7 Assessment [id number] ([id number])
== END 2023-05-31 08:35 | disposition home or self-care (01) ==
PROVIDERS: PCP Internal Medicine; Visit Provider Internal Medicine
DX: R00.1 Bradycardia, unspecified (principal); I10 Essential (primary) hypertension; R73.03 Prediabetes; E78.9 Disorder of lipoprotein metabolism, unspecified
CPT/HCPCS: 99214

== ENCOUNTER 2023-06-12 08:19 | Outpatient (REF) | payer OTHER, SELFPAY ==
[2023-06-19 03:29] LABS: HPV mRNA E6/E7 rflx Not Detected (Not Detected)
== END 2023-06-12 08:20 | disposition home or self-care (01) ==
LOC: HO.LNP 08:19
PROVIDERS: PCP Internal Medicine; Visit Provider Advanced Practice Midwife
DX: Z01.419 Encounter for gynecological examination (general) (routine) without abnormal findings (principal); Z11.51 Encounter for screening for human papillomavirus (HPV)
CPT/HCPCS: 87624; 88142

== ENCOUNTER 2023-06-12 08:19 | Outpatient (AMB) | payer OTHER, SELFPAY ==
--- NOTE | 2023-06-12 08:23 | MHC.OFFVIS ---
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 She is doing well with concerns: rash under her creases, Rx from her PCP. This is a follow up with her PCP in 1 week. Attempting to eat a healthy diet with calcium and vitamin D and stays active with exercise. Currently sexually active. Denies any vaginal dryness or irritation. STI testing offered; she accepts. Last pap smear; many years ago, negative history. Last mammogram; 2022. Colonoscopy is UTD. Denies any family history of ovarian or colon cancer. FH breast cancer-mother. PFSH Medical History Diverticulosis Tubular adenoma HTN (hypertension) Surgical History H/O section Hx of colonoscopy Family History Mother History of breast cancer Social History Housing: House Patient Tobacco Use Status: Former Tobacco user e-Cigarette/Vaping Use: Never Used service: No Current occupational status: employed Sexually active: Yes Sexual orientation: Straight/Heterosexual Gender identity: Female Cognitive needs: No Hearing needs: No Vision needs: No Female Reproductive History Menstrual Age of menopause: 56 Total pregnancies: 5 Full term: 2 Number of Living Children: 2 Ab spontaneous: 3 Date of Mammogram: 11/24/22 (Bir[facility] 1) Review of Systems Const All systems reviewed & are unremarkable except as noted in HPI and below Reports as per HPI Eyes Reports no additional complaints ENT Reports no additional complaints Card Reports no additional complaints Resp Reports no additional complaints GI Reports as per HPI and Reports no additional complaints Reports as per HPI Musc Reports no additional complaints Skin/Breast Reports as per HPI Neuro Reports no additional complaints Psych Reports no additional complaints Endo Reports no additional complaints Zachery/Lymph Reports no additional complaints Aller/Immun Reports no additional complaints Physical Exam Vital Signs: Last Vital Signs BP 150/90 H 06/12/23 08:24 BMI result Body Mass Index 24.4 Const General: cooperative, healthy appearing, no acute distress, well developed and alert Orientation/consciousness: patient oriented x3 HEENT Head: Yes normal to inspection Eyes General: appearance normal, both eyes and all related structures Neck Neck: Yes normal visual inspection Thyroid: Thyroid normal Chest Chest palpation & inspection: normal inspection of the chest and other (no puckering, dimpling, peau de orange, retraction, discharge, masses) Breast/axilla inspection: normal inspection of the breasts Breast/axilla palpation: normal palpation of the breasts Resp Effort & Inspection: normal respiratory effort GI Inspection: Yes normal to inspection Palpation (GI): Soft to palpation Rectal Exam - Female: deferred General: Yes bladder normal to palpation External Female Exam: normal external appearance and normal appearance of the urethra Speculum Exam - Vagina: normal appearance of the vagina, normal palpation, normal vaginal discharge and vagina atrophic (Atrophic changes noted also at cervix bled slightly with Pap) Speculum Exam - Cervix: normal appearance of the cervix and normal palpation Bimanual exam- vagina & uterus: normal bimanual exam, normal palpation, uterine size normal, bladder normal to palpation, normal palpation and non-tender Bimanual Exam- Adnexa, other: no masses Skin Other: Erythematous rash in her creases axilla, breast, surgical fold, groin General skin exam: no rashes or lesions noted Rashes: no rashes Neuro General: patient oriented x3 Cognition (Neuro): normal cognition Extrem General: Yes normal to inspection Psych Attitude: cooperative Thought process: Normal thought process present Assessment & Plan Assessment & Plan (1) Encounter for well woman exam with routine gynecological exam: Code(s): Z01.419 - Encounter for gynecological examination (general) (routine) without abnormal findings Plan Discussed: Current recommendations for pap smears per ASCCP guidelines. Breast awareness, periodic self breast exams and yearly mammogram. Maintain a healthy lifestyle, well balanced diet including Calcium 1,200 mg and Vitamin D 600 IU daily, and routine exercise. Contact the office with any postmenopausal bleeding. Follow up with PCP regarding skin care. Patient verbalizes understanding and agrees to the plan of care. She was given opportunity to ask questions and all questions were answered to the best of my ability. RTO in 1 year for annual urgent care physician assistant exam. This note is constructed using voice recognition software. While every effort has been made to ensure accuracy, grocery clerk stocking errors may have been included. Coding Level of Care Code New Pt Prev Care 40-64y(42757) Diagnoses Encounter for well woman exam with routine gynecological exam Z01.419
[2023-06-12 08:24] VITALS: BP 150/90; BMI 24.4
== END 2023-06-12 09:16 | disposition home or self-care (01) ==
LOC: HO.HWS 08:19
PROVIDERS: PCP Internal Medicine; Visit Provider Advanced Practice Midwife
DX: Z01.419 Encounter for gynecological examination (general) (routine) without abnormal findings (principal)
CPT/HCPCS: 99386

== ENCOUNTER 2023-06-21 10:25 | Outpatient (AMB) | payer OTHER, SELFPAY ==
--- NOTE | 2023-06-21 10:26 | MHC.PC.OV ---
Vital Signs 06/21/23 10:27 Height 5 ft 3 in Weight 139 lb BMI 24.6 BP 140/90 H Blood Pressure Location Rt brachial Position Sitting Pulse 62 Pulse Source Pulse Oximeter Pulse Oximetry (%) 100 Oxygen Delivery Method Room Air Intake Visit Reasons: 3 week follow up per [place] Allergies penicillins Adverse Reaction (Mild, Uncoded 06/21/23 10:28) Rash Medication List - Last Reconciled 06/21/23 by Дмитрий Hong MD clotrimazole-betamethasone 1-0.05 % 1 appl topical ONCE 30 days docusate sodium 100 mg PO BEDTIME hyoscyamine sulfate 0.125 mg PO QID losartan 25 mg PO DAILY Tobacco use date assessed: 06/21/23 Fall risk assessment: No Falls in past year Last assessed Fall Risk: 06/21/23 Dental Screening Dental Screen Date: 06/21/23 Did you have a dental visit in the last 12 months?: Yes Did you have a dental problem in the last 6 months where you did not have access to dental care?: No Was dental information given to patient?: Patient has dentist HPI 3 week follow up per [place] HPI Details Which is the blood pressure medication 3 weeks ago from atenolol to losartan as heart rate was running low and her blood pressure was not controlled She is monitoring her blood pressure and tells me that her systolic blood pressure is running in 130s. There is no side effect patient is tolerating medication I am increasing dose to losartan 50 mg she is to continue that Patient was supposed to do labs before this visit she forgot again Reminded to do it tomorrow we do not have any labs in a while She has appointment set up in October for physical examination she will return then Meanwhile patient will continue to monitor her blood pressure at home. [facility] Medical History Diverticulosis Tubular adenoma HTN (hypertension) Surgical History H/O section Hx of colonoscopy Family History Mother History of breast cancer Social History Housing: House Patient Tobacco Use Status: Former Tobacco user e-Cigarette/Vaping Use: Never Used service: No Current occupational status: employed Sexual orientation: Straight/Heterosexual Gender identity: Female Cognitive needs: No Hearing needs: No Vision needs: No Questionnaire Thrive Questionnaire Date Thrive assessed: 05/31/23 BLAIR-7 AMB Questionnaire BLAIR-7 Date BLAIR - 7 assessed: 05/31/23 Source: Developed by Drs. Tristen Bates, Naima Castillo, Jose Guadalupe Law and colleagues, with an educational fide from [email or web address]. Review of Systems Const Denies chills and Denies fever(s) ENT Denies epistaxis and Denies nasal discharge Card Denies chest pain Resp Denies chest congestion, Denies cough and Denies hemoptysis GI Denies diarrhea and Denies nausea Skin/Breast Denies rash Neuro Reports no additional complaints Psych Reports no additional complaints Endo Reports no additional complaints Physical exam (Primary Care) Vital Signs: Last Vital Signs Pulse 62 06/21/23 10:27 BP 140/90 H 06/21/23 10:27 Pulse Ox 100 06/21/23 10:27 Oxygen Delivery Method Room Air 06/21/23 10:27 BMI result Body Mass Index 24.6 Tobacco/Smoking Status: Tobacco use Status Tobacco use date assessed 06/21/23 06/21/23 10:28 Patient Tobacco Use Status Former Tobacco user 06/21/23 10:28 e-Cigarette/Vaping Use Never Used 06/21/23 10:28 Thrive Assessment: Date of Thrive Assessment Date Thrive assessed 05/31/23 06/21/23 10:28 Const General: cooperative, comfortable and no acute distress Orientation/consciousness: patient oriented x3 HENOK Head: Yes normocephalic Eyes General: appearance normal, both eyes and all related structures Neck Neck: Yes supple Resp Effort & Inspection: normal respiratory effort, no cough and no stridor Cardio Rhythm: regular rhythm Heart sounds: S1 normal heart sound present and S2 normal heart sound present Skin General skin exam: turgor normal Neuro General: patient oriented x3, tone normal and moves all extremities Extrem Right lower extremity: no edema Left lower extremity: no edema Assessment and Plan Assessment & Plan (1) Hypertension, essential: Code(s): I10 - Essential (primary) hypertension Plan Which is the blood pressure medication 3 weeks ago from atenolol to losartan as heart rate was running low and her blood pressure was not controlled She is monitoring her blood pressure and tells me that her systolic blood pressure is running in 130s. There is no side effect patient is tolerating medication I am increasing dose to losartan 50 mg she is to continue that Patient was supposed to do labs before this visit she forgot again Reminded to do it tomorrow we do not have any labs in a while She has appointment set up in October for physical examination she will return then Meanwhile patient will continue to monitor her blood pressure at home. Medications: Changed From losartan 25 mg PO DAILY 30 tabs 0RF To losartan 50 mg PO DAILY 90 tabs 1RF 90 days Coding Level of Care Code Est Pt Level 3 (51023) Diagnoses Hypertension, essential I10
[2023-06-21 10:27] VITALS: BP 140/90; PULSE 62; O2SAT 100; BMI 24.6
== END 2023-06-21 13:45 | disposition home or self-care (01) ==
PROVIDERS: PCP Internal Medicine; Visit Provider Internal Medicine
DX: I10 Essential (primary) hypertension (principal)
CPT/HCPCS: 99213

== ENCOUNTER 2023-06-29 07:06 | Outpatient (REF) | payer OTHER, SELFPAY ==
[2023-06-29 11:27] LABS: MANUAL DIFF FLAG NO
[2023-06-29 11:39] LABS: Basophils Percent Auto 0.8 % (0-2); Eosinophils Absolute Auto 0.2 X10*3/uL (0.0-0.4); Eosinophils Percent Auto 3.6 % (0-4); Hematocrit 47.9 % (37.0-47.0); Hemoglobin 15.7 g/dl (12.0-16.0); Imm Gran Abs Auto 0.02 X10*3/uL (0.00-0.03); Imm Gran Pct Auto 0.4 % (0.0-0.4); Lymphocytes Absolute Auto 1.8 X10*3/uL (1.2-4.9); Lymphocytes Percent Auto 33.7 % (20-40); Mean Corpuscular HGB Conc 32.8 g/dl (31.0-35.0); Mean Corpuscular Hemoglobin 28.3 pg (27.0-33.0); Mean Corpuscular Volume 86.3 fL (80.0-98.0); Mean Platelet Volume 10.1 fL (9.4-12.3); Monocytes Absolute Auto 0.5 X10*3/uL (0.1-1.2); Monocytes Percent Auto 8.8 % (2-11); Neutrophils Absolute Auto 2.8 x10*3/uL (2.0-8.3); Neutrophils Percent Auto 52.7 % (45-73); Platelet Count 313 X10*3/uL (160-400); Red Blood Count 5.55 X10*6/uL (4.20-5.50); Red Cell Distribution Width 13.8 % (11.0-16.0); White Blood Count 5.2 X10*3/uL (4.8-10.8)
[2023-06-29 11:43] LABS: Estimated Average Glucose 120 mg/dL; Hemoglobin A1c % 5.8 % (<6.0)
[2023-06-29 11:55] LABS: Alanine Aminotransferase 26 U/L (0-31); Albumin Level 4.3 g/dL (3.5-5.0); Alkaline Phosphatase 74 U/L (39-117); Anion Gap 14 (12-20); Aspartate Amino Transferase 26 U/L (5-31); Bilirubin Total 0.6 mg/dL (0.0-1.0); Blood Urea Nitrogen 18 mg/dL (9-16); Calcium 9.5 mg/dL (8.4-10.2); Carbon Dioxide 26 mmol/L (22-29); Chloride 103 mmol/L (96-108); Cholesterol 228 mg/dL (<200); Estimated Glomerular Filt Rate > 60; Glucose Fasting 94 mg/dL (60-99); HDL Cholesterol 41 mg/dL (>40); LDL Cholesterol Calculated 163 mg/dL (<100); Potassium 4.3 mmol/L (3.3-5.1); Sodium 139 mmol/L (135-145); Triglycerides 122 mg/dL (<150)
== END 2023-06-29 07:07 | disposition home or self-care (01) ==
LOC: HO.HMGCLDS 07:06
PROVIDERS: PCP Internal Medicine; Visit Provider Internal Medicine
DX: R73.03 Prediabetes (principal); E78.9 Disorder of lipoprotein metabolism, unspecified; I10 Essential (primary) hypertension
CPT/HCPCS: 36415; 80053; 80061; 83036; 85025

== ENCOUNTER 2023-11-13 12:54 | Outpatient (AMB) | payer MEDICARE, SELFPAY ==
[2023-11-13 13:05] VITALS: BP 132/82; PULSE 56; O2SAT 97; BMI 24.1
--- NOTE | 2023-11-13 13:05 | A.OFFPC_ITS ---
Vital Signs 3 11/13/23 13:05 Height 5 ft 3 in Weight 136 lb BMI 24.1 BP 132/82 Blood Pressure Location Lt brachial Position Sitting Pulse 56 Pulse Source Pulse Oximeter Pulse Oximetry (%) 97 Oxygen Delivery Method Room Air Intake Visit Reasons: pe Allergies penicillins Adverse Reaction (Mild, Uncoded 11/13/23 13:06) Rash Medication List - Last Reconciled 11/13/23 by Дмитрий Hong MD clotrimazole-betamethasone 1-0.05 % 1 appl topical ONCE 30 days docusate sodium 100 mg PO BEDTIME hyoscyamine sulfate 0.125 mg PO QID losartan 50 mg PO DAILY 90 days Tobacco use date assessed: 06/21/23 Fall risk assessment: No Falls in past year Last assessed Fall Risk: 11/13/23 Dental Screening Dental Screen Date: 06/21/23 HPI pe 2 HPI0 Details Patient is 63-year-old female came in today talk about few medical problems She has extensive tinea corporis rash for that I have sent terbinafine tablets to be taken once a day for 7 days and then ketoconazole cream locally b.i.d. to control it She also has developed abdominal wall hernia, she has scar from close to the hernia Patient says that when she is exercising she feels pain in that area. I have placed a referral for surgical evaluation Last time she had labs in June her LDL was 163, we will be repeating labs and if it came back same or higher she agreed to take statin OBGYN visit is up-to-date [facility] earlier this year Colonoscopy was last year [facility] Mammogram order placed patient is due Follow-up six-month for blood pressure monitoring and physical exam 1 year [facility] Medical History Diverticulosis Tubular adenoma HTN (hypertension) Surgical History H/O section Hx of colonoscopy Family History Mother History of breast cancer Social History Housing: House Patient Tobacco Use Status: Former Tobacco user e-Cigarette/Vaping Use: Never Used service: No Current occupational status: employed Sexual orientation: Straight/Heterosexual Gender identity: Female Cognitive needs: No Hearing needs: No Vision needs: No Questionnaire PHQ-9 Over the last 2 weeks, how often have you been bothered by any of the following problems? 1. Little interest or pleasure in doing things: several days 2. Feeling down, depressed, or hopeless: several days 3. Trouble falling or staying asleep, or sleeping too much: not at all 4. Feeling tired or having little energy: several days 5. Poor appetite or overeating: not at all 6. Feeling bad about yourself - or that you are a failure or have let yourself or your family down: not at all 7. Trouble concentrating on things, such as reading the newspaper or watching television: not at all 8. Moving or speaking so slowly that other people could have noticed. Or the opposite - being so fidgety or restless that you have been moving around a lot more than usual: not at all 9. Thoughts that you would be better off or of hurting yourself in some way: not at all Total score: 3 Depression Screening Interpretation: Negative Depression Screening Done: Yes 13563 - PHQ-9 Billing: Yes Source: Developed by Drs. Tristen Bates, Naima Castillo, Jose Guadalupe Law and colleagues, with an educational fide from [employer]. Thrive Questionnaire Date Thrive assessed: 11/13/23 I am a: Patient What is your living situation today?: I have a steady place to live Within the past 12 months, did the food you bought not last and you didn't have the money to get more?: Never true Within the past 12 months, did you worry whether your food would run out before you got money to buy more?: Never true Do you have trouble paying for medicines?: No Do you have trouble getting transportation to medical appointments?: No Do you have trouble paying your heating and electricity bill?: No Do you have trouble taking care of your child, family member or friend?: No Do you have trouble with day-to-day activities such as bathing, preparing meals, shopping, managing finances, etc.?: No Are you currently unemployed and looking for a job?: No Are you interested in more education?: I choose not to answer this question Please select the resources that you would like help with: None Currently or been in a relationship where the following occur: No concerns reported THRIVE Score: 0 AUDIT C Alcohol Use Questionnaire (AUDIT-C) 1. How often do you have a drink containing alcohol?: Monthly or less 2. How many drinks containing alcohol do you have on a typical day when you are drinking?: 1 or 2 3. How often do you have six or more drinks on one occasion?: Never Total Score: 1 BLAIR-7 AMB Questionnaire BLAIR-7 Date BLAIR - 7 assessed: 11/13/23 Feeling nervous, anxious, or on edge: 1 = Several days Not being able to stop or control worryin = Several days Worrying too much about different things: 1 = Several days Trouble relaxin = Several days Being so restless that it is hard to sit still: 1 = Several days Becoming easily annoyed or irritable: 1 = Several days Feeling afraid as if something awful might happen: 1 = Several days Total BLAIR-7 score (0-4 normal; 5-9 mild; 10-14 moderate; 15-21 severe): 7 Source: Developed by Drs. Tristen Bates, Naima Castillo, Jose Guadalupe Law and colleagues, with an educational fide from [employer]. BLAIR-7 Assessment Billing BLAIR-7 Assessment Tool: BLAIR-7 Assessment 34761 Review of Systems Const Denies chills, Denies fever(s) and Denies headache(s) Eyes Denies blurry vision ENT Denies headache(s), Denies nasal discharge, Denies nasal obstruction, Denies odynophagia and Denies sinus pain Card Denies chest pain at rest and Denies chest pain with activity Resp Denies cough and Denies hemoptysis GI Denies diarrhea, Denies odynophagia, Denies vomiting and Denies hematemesis Reports as per HPI Musc Denies abnormal gait Skin/Breast Reports as per HPI Neuro Denies Neuro-related abnormal movements, Denies Abnormal speech present, Denies abnormal gait, Denies headache(s) and Denies Sensory deficit (Neuro) Psych Denies mood swings and Denies paranoia Endo Reports as per HPI Zachery/Lymph Reports as per HPI Aller/Immun Reports as per HPI Physical exam (Primary Care) Vital Signs: Last Vital Signs Pulse 56 08/28/24 13:05 BP 132/82 11/13/23 13:05 Pulse Ox 97 11/13/23 13:05 Oxygen Delivery Method Room Air 11/13/23 13:05 BMI result Body Mass Index 24.1 Tobacco/Smoking Status: Tobacco use Status Tobacco use date assessed 06/21/23 11/13/23 13:05 Patient Tobacco Use Status Former Tobacco user 11/13/23 13:05 e-Cigarette/Vaping Use Never Used 11/13/23 13:05 PHQ-9: PHQ-9 Score PHQ-9: Total score 3 11/13/23 13:51 Depression Screening Interpretation: Negative Thrive Assessment: Date of Thrive Assessment Date Thrive assessed 11/13/23 11/13/23 13:10 Currently or been in a relationship where the following occur: No concerns reported Const General: cooperative, comfortable and no acute distress Orientation/consciousness: patient oriented x3 HENMT Head: Yes normocephalic and Yes atraumatic Eyes General: appearance normal, both eyes and all related structures Pupils: Equal, round and reactive pupils present EOM: EOMs intact bilaterally Neck Neck: Yes supple and No lymphadenopathy Thyroid: Thyroid normal Lymphatic: no lymphadenopathy noted Resp Effort & Inspection: normal respiratory effort and able to speak in complete sentences Auscultation: clear to auscultation bilaterally Cardio Heart sounds: S1 normal heart sound present and S2 normal heart sound present GI Palpation (GI): Soft to palpation and nontender Auscultation: normal bowel sounds Abdomen image: 2 1. Scar from 2. Bulge where patient is complaining of pain during exercise, no pain with palpation 3. Extensive tinea corporis rash General: Yes no CVA tenderness Back/Spine/Pelvis Back: no CVA tenderness Skin General skin exam: elasticity normal and turgor normal Neuro General: patient oriented x3 and gait normal Cranial nerves: Yes Equal, round and reactive pupils present Speech: No Abnormal speech present Sensory Exam: No Sensory deficit (Neuro) Coordination: tandem gait normal and Romberg test negative Extrem General: Yes normal exam except as noted and No edema Assessment and Plan Assessment & Plan (1) Abdominal wall hernia: Code(s): K43.9 - Ventral hernia without obstruction or gangrene (2) Tinea corporis: Code(s): B35.4 - Tinea corporis (3) Hypertension, essential: Code(s): I10 - Essential (primary) hypertension (4) Lipid disorder: Code(s): E78.9 - Disorder of lipoprotein metabolism, unspecified Plan Patient is 63-year-old female came in today for physical exam She has extensive tinea corporis rash for that I have sent terbinafine tablets to be taken once a day for 7 days and then ketoconazole cream locally b.i.d. to control it She also has developed abdominal wall hernia, she has scar from close to the hernia Patient says that when she is exercising she feels pain in that area. I have placed a referral for surgical evaluation Last time she had labs in June her LDL was 163, we will be repeating labs and if it came back same or higher she agreed to take statin OBGYN visit is up-to-date [facility] earlier this year Colonoscopy was last year [facility] Mammogram order placed patient is due Follow-up six-month for blood pressure 45 minutes spent in care of this patient Orders: Orders 2 MM tomosynthesis screening BI Today Z12.31 - Encounter for screening mammogram for malignant neoplasm of breast Complete Blood Count Auto Diff Today B35.4 - Tinea corporis, E78.9 - Disorder of lipoprotein metabolism, unspecified, I10 - Essential (primary) hypertension, K43.9 - Ventral hernia without obstruction or gangrene, Z00.01 - Encounter for general adult medical examination with abnormal findings Comprehensive [place]. Panel Fast Today B35.4 - Tinea corporis, E78.9 - Disorder of lipoprotein metabolism, unspecified, I10 - Essential (primary) hypertension, K43.9 - Ventral hernia without obstruction or gangrene, Z00.01 - Encounter for general adult medical examination with abnormal findings Lipid Panel Today B35.4 - Tinea corporis, E78.9 - Disorder of lipoprotein metabolism, unspecified, I10 - Essential (primary) hypertension, K43.9 - Ventral hernia without obstruction or gangrene, Z00.01 - Encounter for general adult medical examination with abnormal findings TSH reflex Free T4 Today B35.4 - Tinea corporis, E78.9 - Disorder of lipoprotein metabolism, unspecified, I10 - Essential (primary) hypertension, K43.9 - Ventral hernia without obstruction or gangrene, Z00.01 - Encounter for general adult medical examination with abnormal findings Referrals 2 General Surgery Referral K43.9 - Ventral hernia without obstruction or gangrene Medications: New 2 terbinafine HCl 250 mg PO DAILY 7 tabs 0RF rash ketoconazole 2% 1 appl topical BID 60 grams 3RF rash Coding Level of Care Code Est Pt Level 5 (07663) Diagnoses Abdominal wall hernia K43.9 Tinea corporis B35.4 Hypertension, essential I10 Lipid disorder E78.9 Additional Codes BLAIR-7 Assessment Billing - BLAIR-7 Assessment Tool: BLAIR-7 Assessment 48720 ([id number])
== END 2023-11-13 13:25 | disposition home or self-care (01) ==
PROVIDERS: Visit Provider Internal Medicine
DX: K43.9 Ventral hernia without obstruction or gangrene (principal); B35.4 Tinea corporis; I10 Essential (primary) hypertension; E78.9 Disorder of lipoprotein metabolism, unspecified
CPT/HCPCS: 99215

== ENCOUNTER 2023-12-03 08:42 | Outpatient (AMB) | payer MEDICARE, SELFPAY ==
--- NOTE | 2023-12-03 08:54 | A.OFFVIS_ITS ---
Vital Signs 12/03/23 09:01 Height 5 ft 3 in Weight 136 lb BMI 24.1 BP 188/91 H Blood Pressure Location Rt brachial Position Sitting Pulse 58 Intake Visit Reasons: Ventral hernia Intake Note: Patient referred by pcp Dr. Hong for ventral hernia. Present for 2yrs. Patient c/o: painful, bulging out. Paint Spray Inspector Required: No Accompanied by: Spouse Allergies penicillins Adverse Reaction (Mild, Uncoded 12/03/23 08:59) Rash HPI Comments Details: Patient presents with the for evaluation of a left groin hernia. She has had this proximally 2 years time. His increasing in size, become more symptomatic. He would like to have repaired. She is otherwise tolerating a diet. She has history of constipation issues which is handled by her full service supervisor. She does occasional heavy lifting it is relatively active. Chart was reviewed and patient evaluate [facility] Medical History Diverticulosis Tubular adenoma HTN (hypertension) Surgical History H/O section Hx of colonoscopy Family History Mother History of breast cancer Social History Housing: House Patient Tobacco Use Status: Former Tobacco user e-Cigarette/Vaping Use: Never Used service: No Current occupational status: employed Sexual orientation: Straight/Heterosexual Gender identity: Female Cognitive needs: No Hearing needs: No Vision needs: No Physical Exam Vital Signs: Last Vital Signs Pulse 58 12/03/23 09:01 BP 188/91 H 12/03/23 09:01 BMI result Body Mass Index 24.1 Chest Other: Chest breath sounds bilaterally, HS 1 in 2 GI Other: Patient was examined standing with Valsalva. Right groin negative. Abdomen is soft and benign. Mildly corpulent. scar well healed. Patient has a left inguinal hernia reducible. Assessment & Plan Assessment & Plan (1) Reducible left inguinal hernia: Code(s): K40.90 - Unilateral inguinal hernia, without obstruction or gangrene, not specified as recurrent Category: Surgical Plan Risks, benefits, alternatives of open left inguinal hernia repair with mesh reviewed the patient and included but not limited to bleeding, infection, recurrence, numbness, pain, scarring the patient wished to proceed. All questions answered. Arrangements were made for this. Coding Level of Care Code New Pt Level 5 (38096) Diagnoses Reducible left inguinal hernia K40.90
[2023-12-03 09:01] VITALS: BP 188/91; PULSE 58; BMI 24.1
== END 2023-12-03 09:28 | disposition home or self-care (01) ==
PROVIDERS: PCP Internal Medicine; Referring Provider Internal Medicine; Visit Provider Surgery
DX: K40.90 Unilateral inguinal hernia, without obstruction or gangrene, not specified as recurrent (principal)
CPT/HCPCS: 99204

== ENCOUNTER → 2023-12-03 08:42 | Outpatient (BNVA) | payer MEDICARE, SELFPAY | PROVIDERS: PCP Internal Medicine; Referring Provider Internal Medicine; Visit Provider Surgery | DX: K40.90 Unilateral inguinal hernia, without obstruction or gangrene, not specified as recurrent (principal) | CPT/HCPCS: 99202 ==

== ENCOUNTER 2024-01-02 07:16 | Day surgery (SDC) | payer MEDICARE, SELFPAY ==
[2023-12-17 09:56] VITALS: BMI 24.1
--- NOTE | 2023-12-31 12:18 | HO.ANESPROP2 ---
Documented by User: Linette Peterson NP 12/31/23 12:21 HPI - Anesthesia Eval Consult details Narrative: 63yo F for Left Hernia Inguinal Reducible PMFSH Active Problems Active Problems: All Active Problems Reducible left inguinal hernia (Acute) Abdominal wall hernia (Acute) Bradycardia (Acute) Lipid disorder (Acute) Prediabetes (Acute) Hypertension, essential (Acute) Encounter for routine gynecological examination (Acute) Colon cancer screening (Acute) Tinea corporis (Acute) Elevated blood pressure reading (Acute) Encounter for general adult medical examination with abnormal findings (Acute) Acute cystitis (Acute) Diverticulosis (Acute) Tubular adenoma (Acute) Past Medical History Medical History Diverticulosis Tubular adenoma HTN (hypertension) Family History Family History Mother History of breast cancer Family history of problems with anesthesia: No Surgical History Surgical History H/O section Hx of colonoscopy History of Problems with Anesthesia: No Social History Social History (Updated 01/02/24 @ 09:55 by Paulette Begum MD) Housing: House Are you a primary patient care associate to a significant other at home: No Do you presently have visiting nurse or other home services: No Patient Tobacco Use Status: Former Tobacco user Tobacco use type: Cigarette e-Cigarette/Vaping Use: Currently Using Substance Use Type: Marijuana service: No Current occupational status: employed Sexual orientation: Straight/Heterosexual Gender identity: Female Cognitive needs: No Hearing needs: No Vision needs: No Meds Allergies Allergy/AdvReac Type Severity Reaction Status Date / Time Penicillins Allergy Mild Rash/hives Verified 12/17/23 09:46 Exam Height,Weight and Vital Signs: Height 5 ft 3 in Weight 61.689 kg Pertinent Lab Results Pertinent Lab Results: Laboratory Tests 06/29/23 07:10 WBC 5.2 Hgb 15.7 Hct 47.9 H Plt Count 313 Sodium 139 Potassium 4.3 Chloride 103 Carbon Dioxide 26 BUN 18 H Creatinine 0.79 Narrative Narrative: EKG 05/2023 SB @ 42 Assessment and Plan Assessment Anesthesia Assessment: Chart Reviewed Final Anesthetic Review Family History of Problems with Anesthesia: No History of Problems with Anesthesia: No Documented by User: Paulette Begum MD 01/02/24 09:57 HPI - Anesthesia Eval Consult details Narrative: 63yo F for Repair of Reducible Left Inguinal Hernia PMFSH Past Medical History Medical History Diverticulosis Tubular adenoma HTN (hypertension) Family History Family History Mother History of breast cancer Family history of problems with anesthesia: No Surgical History Surgical History H/O section Hx of colonoscopy History of Problems with Anesthesia: No Social History Social History (Updated 01/02/24 @ 09:55 by Paulette Begum MD) Housing: House Are you a primary patient care associate to a significant other at home: No Do you presently have visiting nurse or other home services: No Patient Tobacco Use Status: Former Tobacco user Tobacco use type: Cigarette e-Cigarette/Vaping Use: Currently Using Substance Use Type: Marijuana service: No Current occupational status: employed Sexual orientation: Straight/Heterosexual Gender identity: Female Cognitive needs: No Hearing needs: No Vision needs: No Meds Allergies Allergy/AdvReac Type Severity Reaction Status Date / Time Penicillins Allergy Mild Rash/hives Verified 12/17/23 09:46 Exam Height,Weight and Vital Signs: Height 5 ft 3 in Weight 61.689 kg Vital Signs Temp Pulse Resp BP Pulse Ox O2 Del Method 01/02/24 08:32 155/86 H 01/02/24 08:06 181/88 H 01/02/24 07:40 97 F 56 18 172/91 H 99 Room Air Pertinent Lab Results Pertinent Lab Results: Laboratory Tests 06/29/23 07:10 WBC 5.2 Hgb 15.7 Hct 47.9 H Plt Count 313 Sodium 139 Potassium 4.3 Chloride 103 Carbon Dioxide 26 BUN 18 H Creatinine 0.79 Airway Mallampati Class: III TM Dist: >3cm Neck ROM: Full Loose/Missing/Broken Teeth: No (Denies broken, loose, missing teeth) Heart: RRR Lungs: CTAB Assessment and Plan Assessment Anesthesia Assessment: Anesthesia Plan Discussed and Chart Reviewed Final Anesthetic Review Family History of Problems with Anesthesia: No History of Problems with Anesthesia: No NPO: Yes ASA Class: II Final Preanesthetic Review: No Changes in Pt Med Stat, Meds/Allgs Chart Reviewed, Consent Obtained/Reviewed and Anes Risks/Benef Reviewed Patient Risk: Intermediate Procedure Risk: Low Assessment/Block/Sedation in SS: Assess/Block/Sedation-SS Anesthetic Plan Anesthetic Plan: GA Disposition: Standard PACU
--- NOTE | 2024-01-01 12:28 | MHC.SHP ---
Pre-Procedural Eval Section A - 24 Hr Update-Section A only Date of Service: 01/02/24 The patient is an INPATIENT: No Changes since office visit: No Cold of Flu in the past 2 weeks, No New Medical Problems, No Changes in Medication and No Patient answered all questions Section B - Complete if H&P > 30 days Chief Complaint: Unilateral inguinal hernia, without obstruction or Allergies: Allergies Allergy/AdvReac Type Severity Reaction Status Date / Time Penicillins Allergy Mild Rash/hives Verified 12/17/23 09:46 Review of Systems Sugical H&P ROS: Negative: Constitution, Cardiovascular, Respiratory, Neurological, Psychiatric, Hem-Onc, Allergic/Immunologic, Gastrointestinal, Genitourinary, Musculoskeletal, Integumentary, Endocrine and Eyes/Ears/Nose/Throat Exam Surgical H&P Exam: Normal: HEENT, Normal: Heart, Normal: Lungs, Normal: Extremities, Normal: Abdomen, Normal: Skin and Normal: Neurological Plan I have reviewed the history and physical and performed a pertinent physical examination on my patient. No changes have occurred unless specified. Time Spent With Patient Time: Total time managing care of this patient today ____ minutes.
[2024-01-02] VITALS (8 sets, daily range): BP systolic 153–181; BP diastolic 86–95; PULSE 48–56; RESP 16–18; TEMP 36.1; O2SAT 97–99; BMI 24.3
--- NOTE | 2024-01-02 08:00 | PC.NURSE ---
surgical area redness noted pt sts dr li aware uses cream for redness
[2024-01-02] MEDS: Lactated Ringers 1,000 ML 100 ML IVCONT (08:06)
--- NOTE | 2024-01-02 11:40 | P.OP_ITS ---
Operative Note Operative Note Date of Service: 01/02/24 Narrative: Preoperative diagnosis: [] Symptomatic Left inguinal hernia Postop diagnosis: [] The same Procedure [] open left inguinal herniorrhaphy Surgeon: [] Octav[employer] Professor: [] Urbano Type of Anesthesia: [] General Indication for surgery: [] Small direct left inguinal hernia. No indirect hernia demonstrated. No obvious femoral hernia demonstrated. Corpulent abdomen Findings: [] Patient brought to the operating room, placed on operative table in supine position, after an adequate level of general anesthesia was induced, the patient's left groin was prepped and draped in usual sterile fashion using a left small para inguinal incision, this carried down through skin, subcutaneous tissue, Alejandra's fascia. External oblique fibers were opened their direction and exploration of the inguinal canal ilioinguinal nerve was identified and preserved throughout the procedure. Exploration of the inguinal canal demonstrated small direct left inguinal hernia. Round ligament was atrophied. No indirect hernia demonstrated. Palpation through the inguinal floor and through the groin demonstrated no obvious palpable or visible femoral hernia.. A Bard mesh was placed over the inguinal floor and sutured inferiorly to the inguinal ligament, superiorly to the transversalis fascia using interrupted 0 Ethibond suture. At completion, mesh was in good position with no tension or gaps. Wound was irrigated, secured hemostasis, and closed in the following manner; external oblique fascia was closed using running 2-0 Vicryl suture. Alejandra's fascia was reapproximated using interrupted 3-0 Vicryl suture. Int errupted inverted deep dermal 3-0 Vicryl sutures, skin was closed using running subcuticular 4-0 Vicryl suture. followed by Steri-Strips and sterile dressings. Wound was infiltrated at the beginning with ilioinguinal block and at the end with indirect infiltration with 0.5% Marcaine/1% lidocaine. Sponge, needle, and instrument counts reported correct. Patient tolerated the procedure well and emerged from anesthesia stable condition. EBL minimal
== END 2024-01-02 12:08 | disposition home or self-care (01) ==
PROVIDERS: PCP Internal Medicine; Visit Provider Surgery
PROC: (CPT 49505; principal; 2024-01-02 09:50)
DX: K40.90 Unilateral inguinal hernia, without obstruction or gangrene, not specified as recurrent (principal); E65 Localized adiposity; K57.30 Diverticulosis of large intestine without perforation or abscess without bleeding; Z86.0101 Personal history of adenomatous and serrated colon polyps; I10 Essential (primary) hypertension; Z88.0 Allergy status to penicillin; Z87.891 Personal history of nicotine dependence
CPT/HCPCS: 49505; C1781; J0736; J1885; J2003; J2405; J2704; J3010

== ENCOUNTER → 2024-01-02 07:16 | Outpatient (BNV) | payer MEDICARE, SELFPAY | PROVIDERS: PCP Internal Medicine; Visit Provider Surgery | DX: K40.90 Unilateral inguinal hernia, without obstruction or gangrene, not specified as recurrent (principal) | CPT/HCPCS: 49505 ==

== ENCOUNTER 2024-01-13 11:15 | Outpatient (AMB) | payer MEDICARE, SELFPAY ==
--- NOTE | 2024-01-13 11:16 | MHC.OFFVIS ---
Intake Visit Reasons: S/P LIH w/mesh Intake Note: Patient here s/p left inguinal hernia. Reports incisions healing well. Patient c/o: some clear discharge. Tenderness. SX: 01-02-2024. Collar Baster Required: No Accompanied by: Self / Same As Patient Allergies Penicillins Allergy (Mild, Verified 01/13/24 11:16) Rash/hives HPI Comments Details: Patient presents for follow up with the . Aside from incisional discomfort which is improving she is otherwise doing well but she is starting a diet. She has some loose stool but is otherwise had this resolved. She is increasing her activity level. [facility] Medical History Diverticulosis Tubular adenoma HTN (hypertension) Surgical History (Updated 01/13/24 @ 11:40 by Robbin Brumfield MD) Reducible left inguinal hernia (01/02/24) H/O section Hx of colonoscopy Family History Mother History of breast cancer Social History (Updated 01/02/24 @ 09:55 by Paulette Begum MD) Housing: House Are you a primary medicare interviewer to a significant other at home: No Do you presently have visiting nurse or other home services: No Patient Tobacco Use Status: Former Tobacco user Tobacco use type: Cigarette e-Cigarette/Vaping Use: Currently Using Substance Use Type: Marijuana service: No Current occupational status: employed Sexual orientation: Straight/Heterosexual Gender identity: Female Cognitive needs: No Hearing needs: No Vision needs: No Physical Exam GI Other: Abdomen is soft. Incision clean dry and intact healing very well Assessment & Plan Assessment & Plan (1) Postop check: Code(s): Z09 - Encounter for follow-up examination after completed treatment for conditions other than malignant neoplasm Category: Surgical Plan Patient was been given local instructions including avoiding strenuous activities next few weeks time otherwise follow-up p.r.n.. All questions answered. Patient will be given a note to start in a few weeks time. Coding Level of Care Code Global (07967) Diagnoses Postop check Z09
== END 2024-01-13 11:29 | disposition home or self-care (01) ==
PROVIDERS: PCP Internal Medicine; Visit Provider Surgery
DX: Z09 Encounter for follow-up examination after completed treatment for conditions other than malignant neoplasm (principal)
CPT/HCPCS: 99024

== ENCOUNTER → 2024-01-13 11:15 | Outpatient (BNVA) | payer MEDICARE, SELFPAY | PROVIDERS: PCP Internal Medicine; Visit Provider Surgery | DX: Z09 Encounter for follow-up examination after completed treatment for conditions other than malignant neoplasm (principal); Z98.890 Other specified postprocedural states | CPT/HCPCS: 99212 ==

== ENCOUNTER 2024-05-12 08:19 | Outpatient (REF) | payer MEDICARE, SELFPAY ==
[2024-05-12 10:03] LABS: MANUAL DIFF FLAG NO
[2024-05-12 10:09] LABS: Basophils Percent Auto 0.8 % (0-2); Eosinophils Absolute Auto 0.2 X10*3/uL (0.0-0.4); Eosinophils Percent Auto 4.9 % (0-4); Hematocrit 44.5 % (37.0-47.0); Hemoglobin 14.3 g/dl (12.0-16.0); Imm Gran Abs Auto 0.02 X10*3/uL (0.00-0.03); Imm Gran Pct Auto 0.5 % (0.0-0.4); Lymphocytes Absolute Auto 1.3 X10*3/uL (1.2-4.9); Mean Corpuscular HGB Conc 32.1 g/dl (31.0-35.0); Mean Corpuscular Hemoglobin 27.9 pg (27.0-33.0); Mean Corpuscular Volume 86.9 fL (80.0-98.0); Mean Platelet Volume 10.3 fL (9.4-12.3); Monocytes Absolute Auto 0.5 X10*3/uL (0.1-1.2); Monocytes Percent Auto 13.9 % (2-11); Neutrophils Absolute Auto 1.7 x10*3/uL (2.0-8.3); Neutrophils Percent Auto 45.9 % (45-73); Platelet Count 242 X10*3/uL (160-400); Red Blood Count 5.12 X10*6/uL (4.20-5.50); Red Cell Distribution Width 13.2 % (11.0-16.0); White Blood Count 3.7 X10*3/uL (4.8-10.8)
[2024-05-12 10:46] LABS: Albumin Level 4.1 g/dL (3.5-5.0); Alkaline Phosphatase 90 U/L (39-117); Anion Gap 11 (12-20); Aspartate Amino Transferase 29 U/L (5-31); Bilirubin Total 0.4 mg/dL (0.0-1.0); Blood Urea Nitrogen 28 mg/dL (9-16); Calcium 8.9 mg/dL (8.4-10.2); Carbon Dioxide 26 mmol/L (22-29); Chloride 106 mmol/L (96-108); Cholesterol 173 mg/dL (<200); Estimated Glomerular Filt Rate > 60; Glucose Fasting 114 mg/dL (60-99); HDL Cholesterol 27 mg/dL (>40); LDL Cholesterol Calculated 119 mg/dL (<100); Potassium 4.4 mmol/L (3.3-5.1); Sodium 139 mmol/L (135-145); Triglycerides 139 mg/dL (<150)
[2024-05-12 10:50] LABS: Alanine Aminotransferase 25 U/L (0-31)
[2024-05-12 11:03] LABS: TSH reflex Free T4 1.71 uIU/mL (0.32-4.0)
== END 2024-05-12 08:20 | disposition home or self-care (01) ==
LOC: HO.HMGCLDS 08:19
PROVIDERS: PCP Internal Medicine; Visit Provider Internal Medicine
DX: B35.4 Tinea corporis (principal); I10 Essential (primary) hypertension; E78.9 Disorder of lipoprotein metabolism, unspecified; R73.03 Prediabetes; L30.9 Dermatitis, unspecified; Z87.19 Personal history of other diseases of the digestive system; Z79.899 Other long term (current) drug therapy; Z00.01 Encounter for general adult medical examination with abnormal findings
CPT/HCPCS: 36415; 80053; 80061; 84443; 85025; 96127; 99212

== ENCOUNTER 2024-05-12 08:19 | Outpatient (AMB) | payer MEDICARE, SELFPAY ==
[2024-05-12 08:21] VITALS: BP 128/78; PULSE 52; RESP 15; TEMP 36.5; O2SAT 99; BMI 25.7
--- NOTE | 2024-05-12 08:21 | MHC.PC.OV ---
Vital Signs 05/12/24 08:21 Height 5 ft 3 in Weight 145 lb 4 oz BMI 25.7 BP 128/78 Blood Pressure Location Rt brachial Position Sitting Respiration 15 Pulse 52 Pulse Source Pulse Oximeter Temp 97.7 F Temp Source Oral Pulse Oximetry (%) 99 Oxygen Delivery Method Room Air Intake Visit Reasons: 6 month follow up Allergies Penicillins Allergy (Mild, Verified 05/12/24 08:21) Rash/hives Medication List - Last Reconciled 05/12/24 by Дмитрий Hong MD clotrimazole-betamethasone 1-0.05 % 1 appl topical ONCE 30 days docusate sodium 100 mg PO BEDTIME hydrocodone-acetaminophen 5-325 mg 1 tab PO Q4-6H PRN losartan 50 mg PO DAILY 90 days Tobacco use date assessed: 05/12/24 Fall risk assessment: No Falls in past year Last assessed Fall Risk: 05/12/24 Dental Screening Dental Screen Date: 05/12/24 Did you have a dental visit in the last 12 months?: Yes Did you have a dental problem in the last 6 months where you did not have access to dental care?: No Was dental information given to patient?: Patient has dentist HPI 6 month follow up HPI Details - The patient is a 63-year-old female presenting with dermatological concerns.g to have a follow-up on hypertension - She has been experiencing a recurring rash despite attempts at using topical cream and other interventions. Under the breast bilateral . - Her antihypertensive regimen includes losartan, and she chooses not to medicate for hyperlipidemia. - Past surgical intervention includes successful inguinal hernia repair in December of the previous year. - No recent lab testing performed since June of the previous year. In spite of placing order and notify patient Problem List - Inguinal Hernia (post-surgical repair) - Essential Hypertension - Hyperlipidemia - Dermatitis Patient Instructions - Proceed with fasting laboratory tests to evaluate cholesterol and electrolytes. - Use 100% cotton bras without underwire to prevent rash recurrence. - Apply powder to areas prone to perspiration to help maintain skin dryness after showering. - Consider using tissue paper under the bra for additional moisture absorption. - Follow up with a dermatology appointment for further evaluation of the rash. - Refill the prescribed cream as it provides temporary relief. - Return for the next appointment scheduled in November. - continue blood pressure medication Review of Systems - General: No fever no chills - Neurological: No headaches no dizziness - Ear nose throat: No sore throat no hearing difficulty no ear pain - Cardiovascular: No syncope, no chest pain, no palpitations - Gastrointestinal: No nausea vomiting or diarrhea - Endocrine: No polyuria polydipsia no heat intolerance - Genitourinary: No dysuria , no blood in urine Physical Exam General: No acute distress HEENT: No acute findings Neck: Supple Respiratory system: Able to talk in full sentences, no audible wheeze cardiovascular: S1-S2 regular in rate and rhythm Gastrointestinal: No pain Extremities: No new findings PERSONAL DEVELOPMENT COACH: Alert awake oriented x3 motor sensory intact Skin: Rash present, under the breast both sides [facility] Medical History Diverticulosis Tubular adenoma HTN (hypertension) Surgical History Reducible left inguinal hernia (01/02/24) H/O section Hx of colonoscopy Family History Mother History of breast cancer Social History Housing: House Are you a primary pet care associate to a significant other at home: No Do you presently have visiting nurse or other home services: No Patient Tobacco Use Status: Former Tobacco user Tobacco use type: Cigarette e-Cigarette/Vaping Use: Currently Using Substance Use Type: Marijuana service: No Current occupational status: employed Sexual orientation: Straight/Heterosexual Gender identity: Female Cognitive needs: No Hearing needs: No Vision needs: No Questionnaire PHQ-9 Over the last 2 weeks, how often have you been bothered by any of the following problems? 1. Little interest or pleasure in doing things: several days 2. Feeling down, depressed, or hopeless: several days 3. Trouble falling or staying asleep, or sleeping too much: several days 4. Feeling tired or having little energy: several days 5. Poor appetite or overeating: several days 6. Feeling bad about yourself - or that you are a failure or have let yourself or your family down: several days 7. Trouble concentrating on things, such as reading the newspaper or watching television: several days 8. Moving or speaking so slowly that other people could have noticed. Or the opposite - being so fidgety or restless that you have been moving around a lot more than usual: several days 9. Thoughts that you would be better off or of hurting yourself in some way: not at all Total score: 8 Depression Screening Interpretation: Negative Depression Screening Done: Yes 70391 - PHQ-9 Billing: Yes Source: Developed by Drs. Tristen Bates, Naima Castillo, Jose Guadalupe Law and colleagues, with an educational fide from [employer]. Thrive Questionnaire Date Thrive assessed: 05/12/24 I am a: Patient What is your living situation today?: I have a steady place to live Within the past 12 months, did the food you bought not last and you didn't have the money to get more?: Never true Within the past 12 months, did you worry whether your food would run out before you got money to buy more?: Never true Do you have trouble paying for medicines?: I choose not to answer this question Do you have trouble getting transportation to medical appointments?: No Do you have trouble paying your heating and electricity bill?: No Do you have trouble taking care of your child, family member or friend?: I choose not to answer this question Do you have trouble with day-to-day activities such as bathing, preparing meals, shopping, managing finances, etc.?: No Are you currently unemployed and looking for a job?: No Are you interested in more education?: Yes Please select the resources that you would like help with: None Currently or been in a relationship where the following occur: No concerns reported THRIVE Score: 0 AUDIT C Alcohol Use Questionnaire (AUDIT-C) 1. How often do you have a drink containing alcohol?: Monthly or less 2. How many drinks containing alcohol do you have on a typical day when you are drinking?: 1 or 2 3. How often do you have six or more drinks on one occasion?: Never Total Score: 1 Score Reviewed/Action Taken: Yes BLAIR-7 AMB Questionnaire BLAIR-7 Date BLAIR - 7 assessed: 05/12/24 Feeling nervous, anxious, or on edge: 1 = Several days Not being able to stop or control worryin = Several days Worrying too much about different things: 0 = Not at all Trouble relaxin = Several days Being so restless that it is hard to sit still: 0 = Not at all Becoming easily annoyed or irritable: 0 = Not at all Feeling afraid as if something awful might happen: 1 = Several days Total BLAIR-7 score (0-4 normal; 5-9 mild; 10-14 moderate; 15-21 severe): 4 Source: Developed by Drs. Tristen Bates, Naima Castillo, Jose Guadalupe Law and colleagues, with an educational fide from [employer]. BLAIR-7 Assessment Billing BLAIR-7 Assessment Tool: BLAIR-7 Assessment 40510 Physical exam (Primary Care) Vital Signs: Last Vital Signs Temp 97.7 F 05/12/24 08:21 Pulse 52 05/12/24 08:21 Resp 15 05/12/24 08:21 BP 128/78 05/12/24 08:21 Pulse Ox 99 05/12/24 08:21 Oxygen Delivery Method Room Air 05/12/24 08:21 BMI result Body Mass Index 25.7 Tobacco/Smoking Status: Tobacco use Status Tobacco use date assessed 05/12/24 05/12/24 08:23 Patient Tobacco Use Status Former Tobacco user 05/12/24 08:23 Tobacco use type Cigarette 05/12/24 08:23 e-Cigarette/Vaping Use Currently Using 05/12/24 08:23 PHQ-9: PHQ-9 Score PHQ-9: Total score 8 05/12/24 08:31 Depression Screening Interpretation: Negative Thrive Assessment: Date of Thrive Assessment Date Thrive assessed 05/12/24 05/12/24 08:31 Currently or been in a relationship where the following occur: No concerns reported Coding Level of Care Code Est Pt Level 4 (37406) Complex EM visit Add On G2211 Diagnoses Tinea corporis B35.4 Hypertension, essential I10 Lipid disorder E78.9 Prediabetes R73.03 Additional Codes BLAIR-7 Assessment Billing - BLAIR-7 Assessment Tool: BLAIR-7 Assessment 96542 ([id number]) PHQ-9 - 98160 - PHQ-9 Billing: Yes ([id number]) Assessment & Plan Assessment & Plan (1) Tinea corporis: Code(s): B35.4 - Tinea corporis Category: Medical (2) Hypertension, essential: Code(s): I10 - Essential (primary) hypertension Category: Medical (3) Lipid disorder: Code(s): E78.9 - Disorder of lipoprotein metabolism, unspecified Category: Medical (4) Prediabetes: Code(s): R73.03 - Prediabetes Category: Medical Plan - The patient is a 63-year-old female presenting with dermatological concerns.g to have a follow-up on hypertension - She has been experiencing a recurring rash despite attempts at using topical cream and other interventions. Under the breast bilateral . - Her antihypertensive regimen includes losartan, and she chooses not to medicate for hyperlipidemia. - Past surgical intervention includes successful inguinal hernia repair in December of the previous year. - No recent lab testing performed since June of the previous year. In spite of placing order and notify patient Problem List - Inguinal Hernia (post-surgical repair) - Essential Hypertension - Hyperlipidemia - Dermatitis - pre diabetes Patient Instructions - Proceed with fasting laboratory tests to evaluate cholesterol and electrolytes. - Use 100% cotton bras without underwire to prevent rash recurrence. - Apply powder to areas prone to perspiration to help maintain skin dryness after showering. - Consider using tissue paper under the bra for additional moisture absorption. - Follow up with a dermatology appointment for further evaluation of the rash. - Refill the prescribed cream as it provides temporary relief. - Return for the next appointment scheduled in November. - continue blood pressure medication Orders: Referrals Dermatology Referral B35.4 - Tinea corporis
== END 2024-05-12 08:48 | disposition home or self-care (01) ==
PROVIDERS: PCP Internal Medicine; Visit Provider Internal Medicine
DX: B35.4 Tinea corporis (principal); I10 Essential (primary) hypertension; E78.9 Disorder of lipoprotein metabolism, unspecified; R73.03 Prediabetes

== ENCOUNTER 2024-09-01 07:28 | Outpatient (AMB) | payer MEDICARE, SELFPAY ==
--- NOTE | 2024-09-01 07:43 | MHC.OFFVIS ---
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 She is doing well with sr account executive concerns: Chronic rash under her breast, pannus fold and groins. Admits to trying everything she can think of and laundry her close properly. Currently sexually active, admits to dryness. STI testing offered; she declines. Attempting to eat a healthy diet with calcium and vitamin D and stays active with exercise. Last pap smear; 2023, negative. Last mammogram; 2022. Colonoscopy is UTD. Denies any family history of ovarian or colon cancer. FH breast cancer. [facility] Medical History Diverticulosis Tubular adenoma HTN (hypertension) Surgical History Reducible left inguinal hernia (01/02/24) H/O section Hx of colonoscopy Family History Mother History of breast cancer Social History Housing: House Are you a primary multi care technician to a significant other at home: No Do you presently have visiting nurse or other home services: No Alcohol intake: current Alcohol intake frequency: holidays/special occasions only Patient Tobacco Use Status: Former Tobacco user Tobacco use type: Cigarette e-Cigarette/Vaping Use: Currently Using Substance Use Type: Marijuana service: No Current occupational status: employed Sexual orientation: Straight/Heterosexual Gender identity: Female Cognitive needs: No Hearing needs: No Vision needs: No Female Reproductive History Menstrual Total pregnancies: 5 Full term: 2 Number of Living Children: 2 Ab spontaneous: 3 Date of last pap smear: 06/12/23 (neg pap and hpv) Date of Mammogram: 11/24/22 (Birad 1) Review of Systems Const All systems reviewed & are unremarkable except as noted in HPI and below Reports as per HPI Eyes Reports no additional complaints ENT Reports no additional complaints Card Reports no additional complaints Resp Reports no additional complaints GI Reports as per HPI and Reports no additional complaints Reports as per HPI Musc Reports no additional complaints Skin/Breast Reports as per HPI Neuro Reports no additional complaints Psych Reports no additional complaints Endo Reports no additional complaints Zachery/Lymph Reports no additional complaints Aller/Immun Reports no additional complaints Physical Exam Vital Signs: Last Vital Signs BP 124/84 09/01/24 07:44 BMI result Body Mass Index 26.6 Const General: cooperative, healthy appearing, no acute distress, well developed and alert Orientation/consciousness: patient oriented x3 HEENT Head: Yes normal to inspection Eyes General: appearance normal, both eyes and all related structures Neck Neck: Yes normal visual inspection Thyroid: Thyroid normal Chest Chest palpation & inspection: normal inspection of the chest and other (no puckering, dimpling, peau de orange, retraction, discharge, masses) Breast/axilla inspection: normal inspection of the breasts Breast/axilla palpation: normal palpation of the breasts Resp Effort & Inspection: normal respiratory effort GI Inspection: Yes normal to inspection Palpation (GI): Soft to palpation Rectal Exam - Female: deferred General: Yes bladder normal to palpation External Female Exam: normal external appearance and normal appearance of the urethra Speculum Exam - Vagina: normal appearance of the vagina, normal palpation and normal vaginal discharge (Clear no evidence of yeast.) Speculum Exam - Cervix: normal appearance of the cervix and normal palpation Bimanual exam- vagina & uterus: normal bimanual exam, normal palpation, uterine size normal, bladder normal to palpation, normal palpation and non-tender Bimanual Exam- Adnexa, other: no masses Skin Other: Erythema under and in between breast, around abdominal scar area, and vulva. General skin exam: no rashes or lesions noted Rashes: no rashes Neuro General: patient oriented x3 Cognition (Neuro): normal cognition Extrem General: Yes normal to inspection Psych Attitude: cooperative Thought process: Normal thought process present Assessment & Plan Assessment & Plan (1) Encounter for well woman exam with routine gynecological exam: Code(s): Z01.419 - Encounter for gynecological examination (general) (routine) without abnormal findings Category: Medical Plan Discussed: Current recommendations for pap smears per ASCCP guidelines. Breast awareness, periodic self breast exams and yearly mammogram. Strongly encouraged yearly mammogram. Has a an order in place. Has dermatology referral placed, recommended try other organizations to see if taking patient's sooner. Reviewed skin care. Maintain a healthy lifestyle, well balanced diet including Calcium 1,200 mg and Vitamin D 600 IU daily, and routine exercise. Contact the office with any postmenopausal bleeding. Replens moisturizer and lubricant. Patient verbalizes understanding and agrees to the plan of care. She was given opportunity to ask questions and all questions were answered to the best of my ability. RTO in 1 year for annual sr account executive exam. This note is constructed using voice recognition software. While every effort has been made to ensure accuracy, director of public relations errors may have been included. Coding Level of Care Code Est Pt Prev Care >65y(94565) Diagnoses Encounter for well woman exam with routine gynecological exam Z01.419
[2024-09-01 07:44] VITALS: BP 124/84; BMI 26.6
== END 2024-09-01 08:14 | disposition home or self-care (01) ==
LOC: HO.HWS 07:28
PROVIDERS: PCP Internal Medicine; Visit Provider Advanced Practice Midwife
DX: Z01.419 Encounter for gynecological examination (general) (routine) without abnormal findings (principal)
CPT/HCPCS: 99397; 99459

== ENCOUNTER → 2024-09-01 07:28 | Outpatient (BNVA) | payer MEDICARE, SELFPAY | PROVIDERS: PCP Internal Medicine; Visit Provider Advanced Practice Midwife | DX: Z01.419 Encounter for gynecological examination (general) (routine) without abnormal findings (principal) | CPT/HCPCS: 99397 ==

== ENCOUNTER 2025-01-01 10:19 | Outpatient (AMB) | payer MEDICARE, SELFPAY ==
[2025-01-01 10:23] VITALS: BP 128/76; PULSE 60; O2SAT 98; BMI 26.8
--- NOTE | 2025-01-01 10:23 | AM.OFFVISMDC ---
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 Hyperlipidemia: - Previous cholesterol measurements showed variations: 119 mg/dL in a recent test and 163 mg/dL the prior year. - The patient attempts dietary management. Vitamin D insufficiency: - Vitamin D level was previously measured at 27 ng/mL. Prediabetes: - Implication of prediabetic status; diet control Colon adenoma: - Tubular adenoma was detected and removed approximately two and a half years ago. - Recommendation for repeat colonoscopy every five years due to the previous finding. Emotional distress: - Stressed due to the recent of her [id number]. - Mentioned having experienced a difficult couple of years emotionally. - Reports access to social support; no mental health medications are taken. Medical History: - Hyperlipidemia - Vitamin D insufficiency - Prediabetes - Emotional distress Social History: - Works in an assisted living facility. - Reports a consistent daily routine, including medication adherence. - No alcohol consumption reported. - Daughter is , a concern due to high-risk status. - Recently experienced stress due to family loss. Family History: - Mother lived to 97 years. Problem List - Hyperlipidemia - Vitamin D insufficiency - Prediabetes - Emotional distress - History of colon adenoma Plan - Recommendation for dietary management of hyperlipidemia; repeat cholesterol testing ordered, to be taken fasting. - Initiation of vitamin D3 supplementation (1000 units per day recommended); follow-up levels should be assessed annually. - Colonoscopy recommended every five years due to previous adenoma; no immediate action required. - Patient advised to share feelings with support network; no psychological intervention deemed necessary at present. - Tetanus and pneumococcal vaccinations discussed; patient opted for tetanus vaccination during this visit. - Annual flu vaccination advised by December; shingles vaccine and flu vaccine to be completed at pharmacy. - Continue monitoring of prediabetes through routine lab work; diet control. - Encouraged routine preventive wellness measures, including adherence to vaccinations. f/u 6 M for Bp Review of Systems - General: No fever no chills - Neurological: No headaches no dizziness - Ear nose throat: No sore throat no hearing difficulty no ear pain - Cardiovascular: No syncope, no chest pain, no palpitations - Gastrointestinal: No nausea vomiting or diarrhea - Endocrine: No polyuria polydipsia no heat intolerance - Genitourinary: No dysuria , no blood in urine Physical Exam - General: No acute distress - HEENT: No acute findings - Neck: Supple - Respiratory system: Able to talk in full sentences - Extremities: No new findings - COMBINER OPERATOR: Alert awake oriented x3 motor intact balance intact, rise from chair intact - Skin: Normal turgor PFSH Medical History Diverticulosis Tubular adenoma HTN (hypertension) Surgical History Reducible left inguinal hernia (01/02/24) H/O section Hx of colonoscopy Family History Mother History of breast cancer Social History Housing: House Are you a primary physician primary care sports medicine to a significant other at home: No Do you presently have visiting nurse or other home services: No Alcohol intake: current Alcohol intake frequency: holidays/special occasions only Patient Tobacco Use Status: Former Tobacco user Tobacco use type: Cigarette e-Cigarette/Vaping Use: Currently Using Substance Use Type: Marijuana service: No Current occupational status: employed Sexual orientation: Straight/Heterosexual Gender identity: Female Cognitive needs: No Hearing needs: No Vision needs: No Questionnaire Medicare Wellness Checkup What [age] 65-67 What gender do you identify with?: female During the past 4 weeks, how much have you been bothered by emotional problems such as feeling anxious, depressed, irritable, sad or downhearted, and blue?: moderately During the past 4 weeks, has your physical & emotional health limited your social activities with family, friends, neighbors, or groups?: not at all During the past 4 weeks, how much bodily pain have you generally had?: no pain During the past 4 weeks, was someone available to help you if you needed & wanted help?: yes, as much as I wanted During the past 4 weeks, what was the hardest physical activity you could do for at least 2 minutes?: moderate Can you get to places out of walking distance without help? (For eg., can you travel alone on buses, taxis or drive your car?): Yes Can you go shopping for groceries or clothes without someone's help?: Yes Can you prepare your own meals?: Yes Can you do your housework without help?: Yes Because of any health problems, do you need the help of another person with your personal care needs such as eating, bathing, dressing or getting around the house?: No Can you handle your own money without help?: Yes During the past 4 weeks, how would you rate your health in general?: very good During the past 4 weeks how have things been going for you?: pretty well Are you having difficulties driving your car?: no Do you always fasten your seat belt when you are in a car?: yes, usually During past 4 weeks, have you been bothered by the following: never: Falling or dizzy when standing up, Trouble eating well?, Teeth or denture problems? and Problems using the telephone? and seldom: Sexual problems? and Tiredness or fatigue? Have you fallen 2 or more times in the past year?: No Are you afraid of falling?: No Are you a smoker?: no During the past 4 weeks, how many drinks of wine, beer, or other alcoholic beverages did you have?: no alcohol at all Do you exercise for about 20 minutes 3 or more times a week?: yes, some of the time Have you been given information to help with the following?: no: Hazards in your house that might hurt you? and no: Keeping track of your medications? How often do you have trouble taking medicines the way you have been told to take them?: I always take medicine as prescribed How confident are you that you can control & manage most of your health problems?: very confident What is your race?: White Mini Mental State Exam (MMSE) Orientation What is the (year) (season) (date) (day) (month)?: year, season, date, day and month Where are we (state) (county) (town or city) (hospital) (floor)?: state, county, town or city, hospital/clinic and floor Score Score: 10 Activity of Daily Living Bathing - sponge bath, tub bath or shower: receives no assistance (gets in/out by self, if usual bathing means Dressing - getting clothes from closets & drawers, including inner/outer garments & fasteners.: gets clothes & gets completely dressed without help Toileting - going to the 'toilet room' for urine/bowel elimination & cleaning self/arranging clothes: goes to toilet room, cleans self, arranges clothes without help Transfer: moves in & out of bed and chair without help (may use support object) Continence: controls urination/bowel movements completely by self Feeding: feeds self without help Total Score: 0 Information obtained from: patient Using telephone: independent Traveling: independent Shopping: independent Preparing meals: independent Housework: independent Taking medicine: independent Managing money: independent PHQ-9 Over the last 2 weeks, how often have you been bothered by any of the following problems? 1. Little interest or pleasure in doing things: not at all 2. Feeling down, depressed, or hopeless: several days 3. Trouble falling or staying asleep, or sleeping too much: several days 4. Feeling tired or having little energy: not at all 5. Poor appetite or overeating: several days 6. Feeling bad about yourself - or that you are a failure or have let yourself or your family down: several days 7. Trouble concentrating on things, such as reading the newspaper or watching television: not at all 8. Moving or speaking so slowly that other people could have noticed. Or the opposite - being so fidgety or restless that you have been moving around a lot more than usual: not at all 9. Thoughts that you would be better off or of hurting yourself in some way: not at all Total score: 4 Depression Screening Interpretation: Negative Depression Screening Done: Yes 83027 - PHQ-9 Billing: Yes Source: Developed by Drs. Tristen Bates, Naima Castillo, Jose Guadalupe Law and colleagues, with an educational fide from [employer]. Physical Exam Vital Signs: Last Vital Signs Pulse 60 01/01/25 10:23 BP 128/76 01/01/25 10:23 Pulse Ox 98 01/01/25 10:23 BMI result Body Mass Index 26.8 Immunizations Boostrix Tdap 2.5 Lf unit-8 mcg-5 Lf/0.5 mL intramuscular syringe Performing Provider: Дмитрий Hong MD Performing Location: [facility] Administered by: Lei Noble CMA on 01/01/25 11:16 Dose Route Admin Location Dispensed Lot Number Expiration Date NDC Epic Kaleidoscope Analyst 0.5 mL IM Right Deltoid 0.5 mL [id number] 01/08/27 71284-576-22 [employer] Total Dispensed Waste 0.5 mL 0 % VIS Given Date VIS Provided VIS Publication Date 01/01/25 Single Vaccine 20 Eligibility Eligibility Date Funding Source Not [facility] Eligible 01/01/25 Private Assessment & Plan Assessment & Plan (1) Medicare annual wellness visit, initial: Code(s): Z00.00 - Encounter for general adult medical examination without abnormal findings (2) Stress at home: Code(s): F43.9 - Reaction to severe stress, unspecified (3) Immunizations incomplete: Code(s): Z28.39 - Other underimmunization status (4) Hypertension, essential: Code(s): I10 - Essential (primary) hypertension (5) Prediabetes: Code(s): R73.03 - Prediabetes (6) Lipid disorder: Code(s): E78.9 - Disorder of lipoprotein metabolism, unspecified Plan Hyperlipidemia: - Previous cholesterol measurements showed variations: 119 mg/dL in a recent test and 163 mg/dL the prior year. - The patient attempts dietary management. Vitamin D insufficiency: - Vitamin D level was previously measured at 27 ng/mL. Prediabetes: - Implication of prediabetic status; diet control Colon adenoma: - Tubular adenoma was detected and removed approximately two and a half years ago. - Recommendation for repeat colonoscopy every five years due to the previous finding. Emotional distress: - Stressed due to the recent of her [id number]. - Mentioned having experienced a difficult couple of years emotionally. - Reports access to social support; no mental health medications are taken. Plan - Recommendation for dietary management of hyperlipidemia; repeat cholesterol testing ordered, to be taken fasting. - Initiation of vitamin D3 supplementation (1000 units per day recommended); follow-up levels should be assessed annually. - Colonoscopy recommended every five years due to previous adenoma; no immediate action required. - Patient advised to share feelings with support network; no psychological intervention deemed necessary at present. - Tetanus and pneumococcal vaccinations discussed; patient opted for tetanus vaccination during this visit. - Annual flu vaccination advised by December; shingles vaccine and flu vaccine to be completed at pharmacy. - Continue monitoring of prediabetes through routine lab work; diet control. - Encouraged routine preventive wellness measures, including adherence to vaccinations. f/u 6 M for Bp Orders: Orders Complete Blood Count Auto Diff Today E78.9 - Disorder of lipoprotein metabolism, unspecified, I10 - Essential (primary) hypertension, R73.03 - Prediabetes Lipid Panel Today E78.9 - Disorder of lipoprotein metabolism, unspecified, I10 - Essential (primary) hypertension, R73.03 - Prediabetes Comprehensive Fallentimber. Panel Fast Today E78.9 - Disorder of lipoprotein metabolism, unspecified, I10 - Essential (primary) hypertension, R73.03 - Prediabetes TDaP Immunization Today Z23 - Encounter for immunization Quality Reporting (2019) Depression/Bipolar (159/160/161/177) PHQ-9: Total score: 4 Coding Level of Care Code Medicare First (G0438) Est Pt Level 3 (04272) Diagnoses Medicare annual wellness visit, initial Z00.00 Stress at home F43.9 Immunizations incomplete Z28.39 Hypertension, essential I10 Prediabetes R73.03 Lipid disorder E78.9 Additional Codes PHQ-9 - 01867 - PHQ-9 Billing: Yes ([id number])
== END 2025-01-01 11:13 | disposition home or self-care (01) ==
LOC: HO.HMCC 10:20
PROVIDERS: PCP Internal Medicine; Visit Provider Internal Medicine
DX: Z00.00 Encounter for general adult medical examination without abnormal findings (principal); F43.9 Reaction to severe stress, unspecified; Z28.39 Other underimmunization status; I10 Essential (primary) hypertension; R73.03 Prediabetes; E78.9 Disorder of lipoprotein metabolism, unspecified; Z23 Encounter for immunization

== ENCOUNTER → 2025-01-01 10:19 | Outpatient (BNVA) | payer MEDICARE, SELFPAY | PROVIDERS: PCP Internal Medicine; Visit Provider Internal Medicine | DX: Z00.00 Encounter for general adult medical examination without abnormal findings (principal); R73.03 Prediabetes; E78.5 Hyperlipidemia, unspecified; E55.9 Vitamin D deficiency, unspecified; I10 Essential (primary) hypertension; Z23 Encounter for immunization; Z28.39 Other underimmunization status | CPT/HCPCS: 90471; 90715; 96127 ==